=== PATIENT | male | born 1975 | race Caucasian/White ===

== ENCOUNTER 2017-02-18 11:17 | Emergency (ER) | payer SELFPAY ==
[~2017-02-18] VITALS: Ht 177.8 cm; Wt 90.7 kg
[~2017-02-18 11:17] MED LIST: METH4TAB PO; SULF1TAB35 PO
--- OUTSIDE RECORDS SUMMARY | 2017-02-18 11:22 | XMS REPORT | Continuity of Care Document ---
Author Author [facility] Organization [facility] Address Unknown Phone Unavailable Allergies Medications Problems Procedures Results Encounters ACCT No. Visit Date/Time Discharge Status Pt. Type Provider Facility Loc./Unit Complaint [id number] 01/29/2013 10:06:00 2012 23:59:59 CLS Outpatient
[2017-02-18] MEDS ORDERED: NS IV 1000 ML 1,000 ML IV ONE (11:30)
--- NOTE | 2017-02-18 11:36 | ED Lower Extremity ---
General Stated Complaint: AMS History of Present Illness Time seen by provider: 11:20 Initial Comments Initial evaluation, patient reports that he has been running outside barefoot this morning. He is complaining of left lower extremity pain, is brought here via EMS. He was recently incarcerated for 100 days and was released 3 days ago. He reports he does have a history of a DVT in his left lower extremity several years ago. He reports to be taking Ativan and Vyvanse. Patient has poor concentration and flight of ideas. He denies any alcohol or drug use. Reports he has been clean 10 years. History hepatitis C. Onset: this morning Pain/Injury Location: left thigh, left foot, left ankle Method of Injury: unknown Modifying Factors: Improves With Rest Allergies and Home Medications Allergies Coded Allergies: No Known Drug Allergies (Verified Allergy, Unknown, 01/09/06) Home Medications Cephalexin 500 Mg Capsule, 500 MG PO Q6H, #28 Ref 0 Prescribed by: CHAY ALEJANDRO on 02/18/17 1403 Methylprednisolone 4 Mg/Dose-Pack Tab.ds.pk, 0 PO UD, #1 Ref 0 FOR PAIN AND SWELLING Prescribed by: SHOSHANA PANG on 04/12/09 1705 Sulfamethoxazole/Trimethoprim 1 Each Tablet, 1 EACH PO BID, #20 Ref 0 FOR INFECTION Prescribed by: SHOSHANA PANG on 04/12/09 1705 Constitutional: see HPI, malaise, weakness EENTM: no symptoms reported, see HPI Respiratory: see HPI, cough Cardiovascular: no symptoms reported, see HPI Gastrointestinal: no symptoms reported, see HPI Genitourinary: no symptoms reported, see HPI Musculoskeletal: see HPI, joint pain (left ankle), muscle pain (left lower extremity) Skin: see HPI, lesions (abrasions left lower extremity and bilateral feet) Psychiatric/Neurological: See HPI, Anxiety All Other Systems Reviewed Negative Unless Noted: Yes Past Egpzexu-Klcggm-Otamrd Hx Gastrointestinal Gastrointestinal Disorders: Hepatitis (hepatitis C ) Physical Exam Vital Signs Vital Sign - Last 12Hours 02/18/17 11:34 Temp 100.7 Pulse 118 Resp 25 B/P (MAP) 143/96 Pulse Ox 97 O2 Delivery Room Air Capillary Refill : General Appearance: WD/WN, no apparent distress HEENT: PERRL/EOMI, normal ENT inspection, TMs normal, pharynx normal Cardiovascular: normal peripheral pulses, regular rate, rhythm, no edema, no murmur, tachycardia Respiratory: chest non-tender, lungs clear, normal breath sounds Gastrointestinal: normal bowel sounds, non tender, soft Back: normal inspection, no CVA tenderness, no vertebral tenderness Hips: bilateral hip non-tender, bilateral hip normal inspection, bilateral hip normal range of motion Ankles: bilateral ankle normal range of motion, left ankle pain, left ankle swelling, left ankle other (mild erythema) Feet: bilateral foot non-tender, bilateral foot other (multiple superficial abrasion) Neurologic/Tendon: normal sensation, normal motor functions, normal tendon functions, responds to pain Neurologic/Psychiatric: no motor/sensory deficits, alert, normal mood/affect, oriented x 3 Skin: warm/dry Lymphatic: no adenopathy Progress/Results/Core Measures Results/Orders Lab Results Laboratory Tests Test 02/18/17 11:30 02/18/17 13:07 Range/Units White Blood Count 10.8 4.3-11.0 10^3/uL Red Blood Count 4.88 4.35-5.85 10^6/uL Hemoglobin 14.1 13.3-17.7 G/DL Hematocrit 43 40-54 % Mean Corpuscular Volume 89 80-99 FL Mean Corpuscular Hemoglobin 29 25-34 PG Mean Corpuscular Hemoglobin Concent 33 32-36 G/DL Red Cell Distribution Width 13.9 10.0-14.5 % Platelet Count 195 130-400 10^3/uL Mean Platelet Volume 10.4 7.4-10.4 FL Neutrophils (%) (Auto) 77 H 42-75 % Lymphocytes (%) (Auto) 11 L 12-44 % Monocytes (%) (Auto) 11 0-12 % Eosinophils (%) (Auto) 0 0-10 % Basophils (%) (Auto) 1 0-10 % Neutrophils # (Auto) 8.3 H 1.8-7.8 X 10^3 Lymphocytes # (Auto) 1.2 1.0-4.0 X 10^3 Monocytes # (Auto) 1.2 H 0.0-1.0 X 10^3 Eosinophils # (Auto) 0.0 0.0-0.3 10^3/uL Basophils # (Auto) 0.1 0.0-0.1 10^3/uL Sodium Level 148 H 135-145 MMOL/L Potassium Level 3.2 L 3.6-5.0 MMOL/L Chloride Level 115 H 98-107 MMOL/L Carbon Dioxide Level 20 L 21-32 MMOL/L Anion Gap 13 5-14 MMOL/L Blood Urea Nitrogen 25 H 7-18 MG/DL Creatinine 1.10 0.60-1.30 MG/DL Estimat Glomerular Filtration Rate > 60 BUN/Creatinine Ratio 23 Glucose Level 83 70-105 MG/DL Calcium Level 9.3 8.5-10.1 MG/DL Total Bilirubin 2.0 H 0.1-1.0 MG/DL Aspartate Amino Transf (AST/SGOT) 56 H 5-34 U/L Alanine Aminotransferase (ALT/SGPT) 43 0-55 U/L Alkaline Phosphatase 68 40-136 U/L Total Protein 7.0 6.4-8.2 GM/DL Albumin 4.0 3.2-4.5 GM/DL Acetaminophen Level < 10 L 10-30 UG/ML Serum Alcohol < 10 <10 MG/DL Urine Color YELLOW Urine Clarity SLIGHTLY CLOUDY Urine pH 5 5-9 Urine Specific [place] 1.025 H 1.016-1.022 Urine Protein 2+ H NEGATIVE Urine Glucose (UA) NEGATIVE NEGATIVE Urine Ketones 3+ H NEGATIVE Urine Nitrite NEGATIVE NEGATIVE Urine Bilirubin NEGATIVE NEGATIVE Urine Urobilinogen NORMAL NORMAL MG/DL Urine Leukocyte Esterase NEGATIVE NEGATIVE Urine RBC (Auto) 1+ H NEGATIVE Urine RBC 0-2 /HPF Urine WBC NONE /HPF Urine Crystals NONE /LPF Urine Bacteria NEGATIVE /HPF Urine Casts NONE /LPF Urine Mucus SMALL H /LPF Urine Other FEW SPERM H /HPF Urine Culture Indicated NO Urine Opiates Screen NEGATIVE NEGATIVE Urine Oxycodone Screen NEGATIVE NEGATIVE Urine Methadone Screen NEGATIVE NEGATIVE Urine Propoxyphene Screen NEGATIVE NEGATIVE Urine Barbiturates Screen NEGATIVE NEGATIVE Ur Tricyclic Antidepressants Screen NEGATIVE NEGATIVE Urine Phencyclidine Screen NEGATIVE NEGATIVE Urine Amphetamines Screen POSITIVE H NEGATIVE Urine Methamphetamines Screen POSITIVE H NEGATIVE Urine Benzodiazepines Screen POSITIVE H NEGATIVE Urine Cocaine Screen NEGATIVE NEGATIVE Urine Cannabinoids Screen NEGATIVE NEGATIVE My Orders Orders - CHAY ALEJANDRO BIOLOGY TUTOR Acetaminophen (02/18/17 11:30) Alcohol (02/18/17 11:30) Cbc With Automated Diff (02/18/17 11:30) Comprehensive Metabolic Panel (02/18/17 11:30) Drug Screen Stat (Urine) (02/18/17 11:30) Ua Culture If Indicated (02/18/17 11:30) Saline Lock/Iv-Start (02/18/17 11:30) Ns Iv 1000 Ml (Sodium Chloride 0.9%) (02/18/17 11:30) Ankle, Left, 3 Views (02/18/17 11:30) Us Venous Lower Ext Lt (02/18/17 11:30) Cephalexin Capsule (Keflex Capsule) (02/18/17 13:15) Medications Given in ED Current Medications Medications Dose Ordered Sig/Ana Route Start Time Stop Time Status Last Admin Dose Admin Sodium Chloride 1,000 ml @ 0 mls/hr Q0M ONCE IV 02/18/17 11:30 02/18/17 11:32 DC 02/18/17 12:00 0 MLS/HR Vital Signs/I&O Vital Sign - Last 12Hours 02/18/17 11:34 Temp 100.7 Pulse 118 Resp 25 B/P (MAP) 143/96 Pulse Ox 97 O2 Delivery Room Air Progress Note : Time: 11:20 Progress Note Initial evaluation completed, IV normal saline 1 L, CBC CMP UA UDS. Continue to monitor EKG. Tachycardia 120 to 140s. Denies illicit drug use. 1145 ultrasound left lower extremity negative, x-rays of the left ankle show no fracture, dislocation, or acute bony abnormalities. Results reviewed with patient. 1245 patient able to stand next to the bedside and give urine sample. Heart rate 100-105. Follow alert and oriented, the patient continues to have flight of ideas through conversation. 1330 UA negative, urine drug screen positive for amphetamines, methamphetamines and benzos. Discussed these results with the patient he denies methamphetamine use. Discussed findings of cellulitis in the left lower extremity, recommended antibiotic treatment. Discussed this with patient. He agrees with this discharge plan and reports he is ready to be released to return home. Diagnostic Imaging Diagonstic Imaging: Ultrasound Plain Films/CT/US/NM/MRI: leg Comments NAME: VIRGILIOCHAIM Vanessa [facility] REC#: [id number] PT STATUS: REG ER : 1975 PHYSICIAN: CHAY ALEJANDRO ADMIT DATE: 02/18/17/ER Signed Date of Exam: 02/18/17 US VENOUS LOWER EXT LT INDICATION: Altered mental status. Pain. TECHNIQUE: Grayscale with color-flow and Doppler waveform evaluation of the left lower extremity deep venous system. CORRELATION STUDY: None FINDINGS: Color and grayscale sonographic images demonstrate no intraluminal defect within the visualized portion of the common femoral, superficial femoral and/or popliteal veins to suggest thrombus formation. These vessels demonstrate normal response to compression and augmentation. No soft tissue fluid collection. IMPRESSION: 1. Negative for deep venous thrombosis of the left leg. Dictated by: Dictated on workstation # [id number] Dict: 02/18/17 120 Trans: 02/18/171205 Interpreted by: DRAKE WINTERS DO Electronically signed by: DRAKE WINTERS DO 02/18/171205 Reviewed: Reviewed/Discussed (with radiology technologist.) Diagonstic Imaging: Xray Plain Films/CT/US/NM/MRI: ankle Departure Impression Impression: Primary Impression: Methamphetamine abuse Additional Impression: Cellulitis of left lower extremity Disposition: 01 HOME, SELF-CARE Condition: Improved Departure-Patient Inst. Decision time for Depature: 13:25 Referrals: NO,LOCAL PHYSICIAN (PCP/Family) Primary Care Physician Patient Instructions: Cellulitis (Skin Infection), Adult (DC), Methamphetamine Add. Discharge Instructions: Increase water and Gatorade intake. Take antibiotics as prescribed. Elevate lower extremities 20 minutes every 2 hours. Wear shoes when outside. Return to emergency department for increased pain, swelling, or redness in lower extremities; temperature greater than 100. Do not use methamphetamines while taking Ativan and Vyvanse. All discharge instructions reviewed with patient, he verbalized understanding and compliance. Scripts Cephalexin (Keflex) 500 Mg Capsule 500 MG PO Q6H, #28 CAP 0 Refills Prov: CHAY ALEJANDRO 02/18/17 CHAY ALEJANDRO Feb 18, 2017 11:36
[2017-02-18 11:39] LABS: BASOPHILS # (AUTO) 0.1 10^3/uL (0.0-0.1); BASOPHILS % (AUTO) 1 % (0-10); EOSINOPHILS % (AUTO) 0 % (0-10); LYMPHOCYTES # (AUTO) 1.2 X 10^3 (1.0-4.0); LYMPHOCYTES % (AUTO) 11 % (12-44); MEAN CORPUSCULAR HEMOGLOBIN 29 PG (25-34); MEAN CORPUSCULAR HGB CONC 33 G/DL (32-36); MEAN CORPUSCULAR VOLUME 89 FL (80-99); MEAN PLATELET VOLUME 10.4 FL (7.4-10.4); MONOCYTES # (AUTO) 1.2 X 10^3 (0.0-1.0); MONOCYTES % (AUTO) 11 % (0-12); NEUTROPHILS # (AUTO) 8.3 X 10^3 (1.8-7.8); NEUTROPHILS % (AUTO) 77 % (42-75); PLATELET COUNT 195 10^3/uL (130-400); RED BLOOD COUNT 4.88 10^6/uL (4.35-5.85); RED CELL DISTRIBUTION WIDTH 13.9 % (10.0-14.5); WHITE BLOOD COUNT 10.8 10^3/uL (4.3-11.0)
[2017-02-18 11:56] LABS: ALANINE AMINOTRANSFERASE 43 U/L (0-55); ALCOHOL < 10 MG/DL (<10); ANION GAP 13 MMOL/L (5-14); ASPARTATE AMINO TRANSFERASE 56 U/L (5-34); BLOOD UREA NITROGEN 25 MG/DL (7-18); BUN/CREATININE RATIO 23; CALCIUM 9.3 MG/DL (8.5-10.1); CARBON DIOXIDE 20 MMOL/L (21-32); CHLORIDE 115 MMOL/L (98-107); GFR ESTIMATED > 60; GLUCOSE 83 MG/DL (70-105); POTASSIUM 3.2 MMOL/L (3.6-5.0); SODIUM 148 MMOL/L (135-145)
[2017-02-18 11:57] LABS: ACETAMINOPHEN < 10 UG/ML (10-30)
--- NOTE | 2017-02-18 12:09 | Diagnostic Imaging Report ---
INDICATION: Altered mental status. Pain. TECHNIQUE: Grayscale with color-flow and Doppler waveform evaluation of the left lower extremity deep venous system. CORRELATION STUDY: None FINDINGS: Color and grayscale sonographic images demonstrate no intraluminal defect within the visualized portion of the common femoral, superficial femoral and/or popliteal veins to suggest thrombus formation. These vessels demonstrate normal response to compression and augmentation. No soft tissue fluid collection. IMPRESSION: 1. Negative for deep venous thrombosis of the left leg. Dictated by: Dictated on workstation # [id number]
--- NOTE | 2017-02-18 12:19 | Diagnostic Imaging Report ---
INDICATION: Left ankle pain and swelling. COMPARISON: None. FINDINGS: 3 views left ankle demonstrate degenerative changes involving the tarsal articulations. There is no fracture or dislocation. There is narrowing of the ankle mortise. IMPRESSION: 1. No acute fracture or dislocation. 2. Degenerative joint disease. 3. 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 Dictated by: Dictated on workstation # [id number]
[2017-02-18 13:14] LABS: BILIRUBIN,URINE NEGATIVE (NEGATIVE); KETONES,URINE 3+ (NEGATIVE); LEUKOCYTE ESTERASE ,URINE NEGATIVE (NEGATIVE); NITRITE,URINE NEGATIVE (NEGATIVE); PH,URINE 5 (5-9); PROTEIN,URINE 2+ (NEGATIVE); UROBILINOGEN,URINE NORMAL (NORMAL)
[2017-02-18] MEDS ORDERED: CEPHALEXIN 250 MG (KEFLEX) CAP PO ONE (13:15)
[2017-02-18] MEDS ORDERED: CEPH-507 PO (14:03)
[2017-02-18 14:15] VITALS: BP 143/96
== END 2017-02-18 14:15 | disposition home or self-care (01) ==
LOC: EDUNIT# 11:17 → ER 11:18
DX: L03.116 Cellulitis of left lower limb (principal); F15.10 Other stimulant abuse, uncomplicated; B19.20 Unspecified viral hepatitis C without hepatic coma; Z86.718 Personal history of other venous thrombosis and embolism
CPT/HCPCS: 36415; 73610; 80053; 80306; 80320; 80329; 81000; 85025

== ENCOUNTER 2018-08-05 16:53 | Emergency (ER) | payer SELFPAY ==
[~2018-08-05] VITALS: Ht 177.8 cm; Wt 97.5 kg
[~2018-08-05 16:53] MED LIST changes: +CEPH-507 PO
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
[2018-08-05 18:35] VITALS: BP 161/97
--- NOTE | 2018-08-05 18:35 | NUR ---
Pt. is to meet Dr. Menendez at his office after being dismissed from the ER.
== END 2018-08-05 18:35 | disposition home or self-care (01) ==
LOC: EDUNIT# 16:53 → ER 16:54
DX: H53.8 Other visual disturbances (principal); B19.20 Unspecified viral hepatitis C without hepatic coma; Z79.52 Long term (current) use of systemic steroids
CPT/HCPCS: 99282

== ENCOUNTER 2021-10-05 20:46 | Inpatient (IN) | payer SELFPAY ==
[~2021-10-05] VITALS: Ht 177.8 cm; Wt 103.0 kg
[2021-10-05 20:50] VITALS: BP 106/78
[2021-10-05] MEDS ORDERED: ASPIRIN 81 MG CHEW (CHILDREN'S ASA) PO ONE (21:00)
--- NOTE | 2021-10-05 21:34 | Diagnostic Imaging Report ---
CHEST 1 VIEW, AP/PA ONLY Indication: Chest pain. Comparison: None available. Findings: Left basilar patchy consolidation. No pleural effusion or pneumothorax. Heart is mildly enlarged. Impression: 1. Left basilar patchy consolidations are most likely due to pneumonia. 2. Advise followup PA and lateral chest radiographs in 4 weeks after appropriate medical management to ensure resolution. Dictated by: Dictated on workstation # [id number]
[2021-10-05 21:49] LABS: BASOPHILS # (AUTO) 0.1 10^3/uL (0.0-0.1); BASOPHILS % (AUTO) 0 % (0-10); EOSINOPHILS # (AUTO) 0.1 10^3/uL (0.0-0.3); EOSINOPHILS % (AUTO) 1 % (0-10); HEMATOCRIT 42 % (40-54); HEMOGLOBIN 13.6 g/dL (13.3-17.7); LYMPHOCYTES # (AUTO) 1.1 10^3/uL (1.0-4.0); LYMPHOCYTES % (AUTO) 6 % (12-44); MEAN CORPUSCULAR HEMOGLOBIN 29 pg (25-34); MEAN CORPUSCULAR HGB CONC 32 g/dL (32-36); MEAN CORPUSCULAR VOLUME 91 fL (80-99); MEAN PLATELET VOLUME 11.5 fL (9.0-12.2); MONOCYTES # (AUTO) 1.2 10^3/uL (0.0-1.0); MONOCYTES % (AUTO) 7 % (0-12); NEUTROPHILS # (AUTO) 14.8 10^3/uL (1.8-7.8); NEUTROPHILS % (AUTO) 85 % (42-75); PLATELET COUNT 173 10^3/uL (130-400); WHITE BLOOD COUNT 17.5 10^3/uL (4.3-11.0)
[2021-10-05 22:08] LABS: ALBUMIN 3.6 GM/DL (3.2-4.5); BILIRUBIN,TOTAL 0.6 MG/DL (0.1-1.0); CALCIUM 8.4 MG/DL (8.5-10.1); CREATININE SERUM 1.44 MG/DL (0.60-1.30); MAGNESIUM 2.4 MG/DL (1.6-2.4); POTASSIUM 3.3 MMOL/L (3.6-5.0); TOTAL PROTEIN 6.1 GM/DL (6.4-8.2)
[2021-10-05] MEDS ORDERED: PIPERACILLIN SODIUM/TAZOBACTAM 4.5 GM in NS (IVPB) 100 ML IV ONE (22:15)
[2021-10-05 22:18] LABS: PROTHROMBIN TIME PATIENT 13.7 SEC (12.2-14.7)
[2021-10-05 22:29] LABS: BAND NEUTROPHILS 3 %; LYMPHOCYTES % (MANUAL) 7 %; MONOCYTES % (MANUAL) 4 %; NEUTROPHILS % (MANUAL) 86 %; RBC MORPH NORMAL
[2021-10-05] MEDS ORDERED: LACTATED RINGERS 1,000 ML IV ONE (22:45)
[2021-10-05] MEDS ORDERED: HOLD METFORMIN - RECEIVED CONTRAST 20 ML VIAL IV SCH (23:30)
[2021-10-05] MEDS ORDERED: CATHETER FLUSH 10 ML SYR IV PRN (23:30)
[2021-10-05] MEDS ORDERED: IOHEXOL 350 MG/ML 100 ML (OMNIPAQUE 350) VIAL IV ONE (23:30)
[2021-10-05] MEDS ORDERED: NS 100 ML (IVPB) BAG IV ONE (23:30)
--- NOTE | 2021-10-06 00:48 | ED General ---
General Chief Complaint: Overdose Stated Complaint: OVERDOSE Nursing Triage Note: Pt arrives via EMS for c/o overdose. Pt found unresponsive by his . Per first responders, pt was pulseless et no respirations; CPR was initiated. Pulse returned after five minutes of CPR, pt then had snoring respirations. On EMS arrival, pt was given 1mg Narcan intranasal et assisted respirations via BVM. Pt then became responsive but was drowsy. During transport pt was A&Ox4. On arrival to ED pt is A&Ox4, oxygen via NC at 6LPM. Pt admits to taking "Xanax one pill." Pt reports chest pain. Source of Information: Patient Exam Limitations: No Limitations (NELSON BORGES MD) History of Present Illness Date Seen by Provider: Oct 05, 2021 Time Seen by Provider: 20:47 Initial Comments This 46-year-old gentleman presents to the emergency room via EMS after being found on the floor by his . EMS reported that first responders found him to be pulseless and not breathing. They initiated CPR. This was ongoing for reportedly about 5 minutes prior to EMS arrival. When EMS arrived they found the patient with agonal breathing and pulse present. They immediately administered nasal Narcan and patient became alert. Oxygen saturations were resuscitated with nasal cannula. Patient is alert and able to answer questions on arrival. He is requiring 4 to 6 L by nasal cannula. Patient admitted to taking something he thought looked like Xanax earlier in the day. He reportedly had some sort of disagreement with his significant other prior to that. Patient does not state whether he intended self-harm by taking this pill. He denies feeling ill in any way prior to this episode. He complains of chest and abdominal discomfort. He denies any head or neck pain. There was no suspicion for trauma other than the CPR. Patient is noted to have an asymmetric smile which he states is normal. He is otherwise neurologically intact on gross examination (NELSON BORGES MD) Allergies and Home Medications Allergies Coded Allergies: Sulfa (Sulfonamide Antibiotics) (Verified Allergy, Unknown, 10/06/21) Patient Home Medication List Home Medication List Reviewed: Yes (NELSON BORGES MD) Lisinopril (Lisinopril) 40 Mg Tablet, 40 MG PO DAILY, (Reported) Entered as Reported by: MCAK GALINDO on 10/06/21 0956 Last Action: Held Discontinued Medications Cephalexin (Keflex) 500 Mg Capsule, 500 MG PO Q6H Discontinued Reason: No Longer Taking Prescribed by: CHAY ALEJANDRO on 02/18/17 1403 Last Action: Discontinued Methylprednisolone (Medrol Dose Pack) 4 Mg/Dose-Pack Tab.ds.pk, 0 PO UD Discontinued Reason: No Longer Taking Prescribed by: SHOSHANA PANG on 04/12/091704 Last Action: Discontinued Sulfamethoxazole/Trimethoprim (Bactrim DS) 1 Each Tablet, 1 EACH PO BID Discontinued Reason: No Longer Taking Prescribed by: SHOSHANA PANG on 04/12/091704 Last Action: Discontinued Review of Systems Review of Systems Constitutional: see HPI EENTM: no symptoms reported Respiratory: see HPI Cardiovascular: see HPI Gastrointestinal: see HPI Genitourinary: no symptoms reported Musculoskeletal: see HPI Skin: no symptoms reported Psychiatric/Neurological: See HPI Hematologic/Lymphatic: No Symptoms Reported Immunological/Allergic: no symptoms reported (NELSON BORGES MD) Past Uskcivc-Brdxft-Yepoyk Hx Patient Social History Tobacco Use?: No Use of E-Cig and/or Vaping dev: No Substance use?: Yes 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) Alcohol Use?: No Pt feels they are or have been: No (NELSON BORGES MD) Immunizations Up To Date Influenza Vaccine Up-to-Date: No; Not Current (NELSON BORGES MD) Seasonal Allergies Seasonal Allergies: No (NELSON BORGES MD) Past Medical History Surgeries: Yes Orthopedic Respiratory: No Cardiac: No Neurological: No Genitourinary: No Gastrointestinal: Yes Hepatitis (Hepatitis C) Endocrine: No HEENT: No Cancer: No Did You Recieve Any Treatments: No Psychosocial: Yes ADD/ADHD Blood Disorders: Yes (HEP C) (NELSON BORGES MD) Physical Exam-Suspected Sepsis Physical Exam Vital Signs Vital Signs - First Documented 10/05/21 10/06/21 20:50 01:49 Temp 36.4 Pulse 78 Resp 19 B/P (MAP) 106/78 (87) Pulse Ox 92 O2 Delivery Nasal Cannula O2 Flow Rate 6.00 FiO2 98 (ELMER REYES) Vital Signs Capillary Refill : Less Than 3 Seconds (NELSON BORGES MD) Blood Pressure Mean: 87 Height, Weight, BMI Height: 5'10.00" Weight: 215lbs. oz. 97.420678hy; 32.00 BMI Method:Stated General Appearance: No Apparent Distress, WD/WN HEENT: PERRL/EOMI, Normal ENT Inspection, Pharynx Normal Neck: Normal Inspection, Non Tender Respiratory: Lungs Clear, Normal Breath Sounds, No Accessory Muscle Use Cardiovascular: Regular Rate, Rhythm, No Edema, No Murmur Gastrointestinal: Normal Bowel Sounds, Soft; No Distended; Tenderness (Generalized) Extremity: Normal Inspection, No Calf Tenderness, Other (Nontender bruising over the right anterior ankle and knee) Neurologic/Psychiatric: Alert, Oriented x3, No Motor/Sensory Deficits, Normal Mood/Affect, 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 Norm as Tested, Other (Generalized weakness with no focal deficits) Skin: normal color, warm/dry, ecchymosis (NELSON BORGES MD) Focused Exam Lactate Level 10/05/21 22:15: Lactic Acid Level 1.13 (ELMER REYES) Progress/Results/Core Measures Suspected Sepsis SIRS Temperature: Pulse: 78 Respiratory Rate: 19 Laboratory Tests 10/05/21 21:40: White Blood Count 17.5H 10/06/21 04:30: White Blood Count 16.4H Blood Pressure 106 /78 Mean: 87 10/05/21 22:15: Lactic Acid Level 1.13 Laboratory Tests 10/05/21 21:40: Creatinine 1.44H, INR Comment 1.0, Platelet Count 173, Total Bilirubin 0.6 10/06/21 04:30: Creatinine 1.00, Platelet Count 168, Total Bilirubin 1.1H (NELSON BORGES MD) Results/Orders Lab Results Laboratory Tests Test 10/05/21 21:03 10/05/21 21:40 10/05/21 22:15 10/06/21 01:30 Range/Units Influenza Type A (RT-PCR) Not Detected Not Detecte Influenza Type B (RT-PCR) Not Detected Not Detecte SARS-CoV-2 RNA (RT-PCR) Not Detected Not Detecte White Blood Count 17.5 H 4.3-11.0 10^3/uL Red Blood Count 4.65 4.30-5.52 10^6/uL Hemoglobin 13.6 13.3-17.7 g/dL Hematocrit 42 40-54 % Mean Corpuscular Volume 91 80-99 fL Mean Corpuscular Hemoglobin 29 25-34 pg Mean Corpuscular Hemoglobin Concent 32 32-36 g/dL Red Cell Distribution Width 13.2 10.0-14.5 % Platelet Count 173 130-400 10^3/uL Mean Platelet Volume 11.5 9.0-12.2 fL Immature Granulocyte % (Auto) 1 % Neutrophils (%) (Auto) 85 H 42-75 % Lymphocytes (%) (Auto) 6 L 12-44 % Monocytes (%) (Auto) 7 0-12 % Eosinophils (%) (Auto) 1 0-10 % Basophils (%) (Auto) 0 0-10 % Neutrophils # (Auto) 14.8 H 1.8-7.8 10^3/uL Lymphocytes # (Auto) 1.1 1.0-4.0 10^3/uL Monocytes # (Auto) 1.2 H 0.0-1.0 10^3/uL Eosinophils # (Auto) 0.1 0.0-0.3 10^3/uL Basophils # (Auto) 0.1 0.0-0.1 10^3/uL Immature Granulocyte # (Auto) 0.2 H 0.0-0.1 10^3/uL Neutrophils % (Manual) 86 % Lymphocytes % (Manual) 7 % Monocytes % (Manual) 4 % Band Neutrophils 3 % Blood Morphology Comment NORMAL Prothrombin Time 13.7 12.2-14.7 SEC INR Comment 1.0 0.8-1.4 Activated Partial Thromboplast Time 24 24-35 SEC D-Dimer 0.62 H 0.00-0.49 UG/ML Sodium Level 145 135-145 MMOL/L Potassium Level 3.3 L 3.6-5.0 MMOL/L Chloride Level 109 H 98-107 MMOL/L Carbon Dioxide Level 23 21-32 MMOL/L Anion Gap 13 5-14 MMOL/L Blood Urea Nitrogen 27 H 7-18 MG/DL Creatinine 1.44 H 0.60-1.30 MG/DL Estimat Glomerular Filtration Rate 61 BUN/Creatinine Ratio 19 Glucose Level 109 H 70-105 MG/DL Calcium Level 8.4 L 8.5-10.1 MG/DL Corrected Calcium 8.7 8.5-10.1 MG/DL Magnesium Level 2.4 1.6-2.4 MG/DL Total Bilirubin 0.6 0.1-1.0 MG/DL Aspartate Amino Transf (AST/SGOT) 40 H 5-34 U/L Alanine Aminotransferase (ALT/SGPT) 63 H 0-55 U/L Alkaline Phosphatase 88 40-136 U/L Myoglobin 255.2 H 10.0-92.0 NG/ML Troponin I < 0.028 <0.028 NG/ML C-Reactive Protein High Sensitivity 0.19 0.00-0.50 MG/DL B-Type Natriuretic Peptide 34.5 <100.0 PG/ML Total Protein 6.1 L 6.4-8.2 GM/DL Albumin 3.6 3.2-4.5 GM/DL Procalcitonin 0.03 <0.10 NG/ML Serum Alcohol < 10 <10 MG/DL Lactic Acid Level 1.13 0.50-2.00 MMOL/L Urine Color YELLOW Urine Clarity CLEAR Urine pH 6.0 5-9 Urine Specific [place] 1.020 1.016-1.022 Urine Protein TRACE H NEGATIVE Urine Glucose (UA) NEGATIVE NEGATIVE Urine Ketones NEGATIVE NEGATIVE Urine Nitrite NEGATIVE NEGATIVE Urine Bilirubin NEGATIVE NEGATIVE Urine Urobilinogen 0.2 < = 1.0 MG/DL Urine Leukocyte Esterase NEGATIVE NEGATIVE Urine RBC (Auto) NEGATIVE NEGATIVE Urine RBC NONE /HPF Urine WBC NONE /HPF Urine Crystals NONE /LPF Urine Bacteria NEGATIVE /HPF Urine Casts PRESENT /LPF Urine Hyaline Casts 0-2 H /LPF Urine Mucus NEGATIVE /LPF Urine Culture Indicated CULTURE PENDING Urine Opiates Screen NEGATIVE NEGATIVE Urine Oxycodone Screen NEGATIVE NEGATIVE Urine Methadone Screen NEGATIVE NEGATIVE Urine Propoxyphene Screen NEGATIVE NEGATIVE Urine Barbiturates Screen NEGATIVE NEGATIVE Ur Tricyclic Antidepressants Screen NEGATIVE NEGATIVE Urine Phencyclidine Screen NEGATIVE NEGATIVE Urine Amphetamines Screen POSITIVE H NEGATIVE Urine Methamphetamines Screen POSITIVE H NEGATIVE Urine Benzodiazepines Screen NEGATIVE NEGATIVE Urine Cocaine Screen NEGATIVE NEGATIVE Urine Cannabinoids Screen NEGATIVE NEGATIVE Test 10/06/21 04:30 10/06/21 04:45 Range/Units White Blood Count 16.4 H 4.3-11.0 10^3/uL Red Blood Count 4.71 4.30-5.52 10^6/uL Hemoglobin 13.8 13.3-17.7 g/dL Hematocrit 42 40-54 % Mean Corpuscular Volume 90 80-99 fL Mean Corpuscular Hemoglobin 29 25-34 pg Mean Corpuscular Hemoglobin Concent 33 32-36 g/dL Red Cell Distribution Width 13.1 10.0-14.5 % Platelet Count 168 130-400 10^3/uL Mean Platelet Volume 11.9 9.0-12.2 fL Immature Granulocyte % (Auto) 1 % Neutrophils (%) (Auto) 89 H 42-75 % Lymphocytes (%) (Auto) 4 L 12-44 % Monocytes (%) (Auto) 6 0-12 % Eosinophils (%) (Auto) 0 0-10 % Basophils (%) (Auto) 0 0-10 % Neutrophils # (Auto) 14.6 H 1.8-7.8 10^3/uL Lymphocytes # (Auto) 0.7 L 1.0-4.0 10^3/uL Monocytes # (Auto) 0.9 0.0-1.0 10^3/uL Eosinophils # (Auto) 0.0 0.0-0.3 10^3/uL Basophils # (Auto) 0.1 0.0-0.1 10^3/uL Immature Granulocyte # (Auto) 0.1 0.0-0.1 10^3/uL Sodium Level 141 135-145 MMOL/L Potassium Level 3.4 L 3.6-5.0 MMOL/L Chloride Level 110 H 98-107 MMOL/L Carbon Dioxide Level 19 L 21-32 MMOL/L Anion Gap 12 5-14 MMOL/L Blood Urea Nitrogen 24 H 7-18 MG/DL Creatinine 1.00 0.60-1.30 MG/DL Estimat Glomerular Filtration Rate 95 BUN/Creatinine Ratio 24 Glucose Level 104 70-105 MG/DL Calcium Level 8.3 L 8.5-10.1 MG/DL Corrected Calcium 8.7 8.5-10.1 MG/DL Phosphorus Level 4.4 2.3-4.7 MG/DL Magnesium Level 2.1 1.6-2.4 MG/DL Total Bilirubin 1.1 H 0.1-1.0 MG/DL Aspartate Amino Transf (AST/SGOT) 31 5-34 U/L Alanine Aminotransferase (ALT/SGPT) 59 H 0-55 U/L Alkaline Phosphatase 74 40-136 U/L Total Creatine Kinase 235 H 30-200 U/L Troponin I < 0.028 <0.028 NG/ML Total Protein 6.0 L 6.4-8.2 GM/DL Albumin 3.5 3.2-4.5 GM/DL Triglycerides Level 54 <150 MG/DL Cholesterol Level 155 < 200 MG/DL LDL Cholesterol Direct 121 1-129 MG/DL VLDL Cholesterol 11 5-40 MG/DL HDL Cholesterol 36 L 40-60 MG/DL Blood Gas Puncture Site RIGHT RADIAL Blood Gas Patient Temperature 37.6 Arterial Blood pH 7.36 L 7.37-7.43 Arterial Blood Partial Pressure CO2 44 35-45 MMHG Arterial Blood Partial Pressure O2 82 79-93 MMHG Arterial Blood HCO3 24 23-27 MMOL/L Arterial Blood Total CO2 25.2 21.0-31.0 MMOL/L Arterial Blood Oxygen Saturation 96 94-100 % Arterial Blood Base Excess -0.6 -2.5-2.5 MMOL/L Paul Test YES-POS Blood Gas Ventilator Setting NO Blood Gas Inspired Oxygen 2L NC (ELMER REYES) Micro Results Microbiology 10/05/21 Blood Culture - Preliminary, Resulted No growth 10/05/21 Blood Culture - Preliminary, Resulted No growth (ELMER REYES) Vital Signs/I&O 10/06/21 10/06/21 10/06/21 10/06/21 06:00 07:00 07:00 07:47 Temp 37.6 Pulse 87 82 91 Resp 23 24 B/P (MAP) 113/73 111/65 Pulse Ox 96 95 O2 Delivery Nasal Cannula Nasal Cannula O2 Flow Rate 2.00 2.00 10/06/21 10/06/21 10/06/21 10/06/21 08:00 09:00 09:15 09:30 Pulse 85 79 Resp 27 21 B/P (MAP) 108/67 111/71 Pulse Ox 94 94 96 O2 Delivery Nasal Cannula Nasal Cannula Room Air Room Air O2 Flow Rate 2.00 2.00 10/06/21 10/06/21 10/06/21 10/06/21 10:00 12:00 12:47 12:55 Temp 37.9 38.0 Pulse 80 83 Resp 29 24 B/P (MAP) 121/75 Pulse Ox 97 91 91 O2 Delivery Nasal Cannula Room Air Room Air O2 Flow Rate 2.00 10/06/21 10/06/21 13:00 15:33 Temp 37.6 Pulse 92 80 Resp 20 B/P (MAP) 129/66 Pulse Ox 90 O2 Delivery Room Air 10/06/21 00:00 Intake Total 1000 ml Balance 1000 ml (ELMRE REYES) Vital Signs/I&O Capillary Refill : Less Than 3 Seconds (NELSON BORGES MD) Blood Pressure Mean: 87 Progress Note #1: Time: 00:54 Progress Note Patient remained alert and did not require any further Narcan. He did continue to require oxygen support at 4 to 6 L by nasal cannula to keep his oxygen satu rations in the 90s. Chest x-ray and CT angiogram of the chest revealed pneumonitis/bronchiolitis. The nature of this is uncertain. I am doubtful that it is infectious as the CRP and procalcitonin are normal. He also is afebrile. This is possibly aspiration, viral illness, or contusion from CPR. Zosyn was given empirically as a bacterial pneumonia cannot be completely ruled out. Patient has not yet produced a urine specimen for toxicology. Serum alcohol was negative. Patient remains alert and oriented. Progress Note #2: Progress Note Case was reviewed with Dr. Johnson and Dr. Mcgowan. Report was given to eICU. (NELSON BORGES MD) Progress Note : Time: 17:35 Progress Note Radiology called a fragmentary order that the patient had a CT revealing a 3 cm nonmetastatic left renal mass consistent with a renal cell carcinoma. We discussed this with Dr. Mcgowan his treating provider in the hospital and she states that she is aware of the finding and will discuss this with the patient. (ELMER REYES) ECG Initial ECG Impression Date: Oct 05, 2021 Initial ECG Impression Time: 20:51 Initial ECG Rate: 67 Initial ECG Rhythm: Normal Sinus Initial ECG Intervals: QT Comment Sinus rhythm with no ST elevation or depression. QTc slightly prolonged at 507. No axis deviation. (NELSON BORGES MD) Diagnostic Imaging Diagonstic Imaging: Xray Plain Films/CT/US/NM/MRI: chest Comments NAME: CHAIM POOLE TOMMIE REC#: [id number] PT STATUS: REG ER : 1975 PHYSICIAN: NELSON BORGES MD ADMIT DATE: 10/05/21/ER Signed Date of Exam:10/05/21 CHEST 1 VIEW, AP/PA ONLY CHEST 1 VIEW, AP/PA ONLY Indication: Chest pain. Comparison: None available. Findings: Left basilar patchy consolidation. No pleural effusion or pneumothorax. Heart is mildly enlarged. Impression: 1. Left basilar patchy consolidations are most likely due to pneumonia. 2. Advise followup PA and lateral chest radiographs in 4 weeks after appropriate medical management to ensure resolution. Dictated by: Dictated on workstation # [id number] Dict: 10/05/212131 Trans: 10/05/212229 [facility] [id number] Interpreted by: ZACHARIAH CHASE MD Electronically signed by: ZACHARIAH CHASE MD 10/05/212229 (NELSON BORGES MD) Diagonstic Imaging: CT (anngio) Plain Films/CT/US/NM/MRI: chest Comments [facility] [place] NAME: CHAIM POOLE REC#: [id number] PT STATUS: ADM IN : 1975 PHYSICIAN: NELSON BORGES MD ADMIT DATE: 10/06/21/ Signed Date of Exam:10/05/21 CT EDENILSON CHEST/NOANG ABD-PELV W INDICATION: Chest pain, abdominal pain, hypoxia CTA chest, abdomen and pelvis Thin axial sections through the chest, abdomen and pelvis are obtained following intravenous contrast bolus. Multiplanar MIP images were reconstructed and reviewed. All CT scans use one or more of the following dose optimizing techniques: automated exposure control, MA and/or KvP adjustment based on patient size and exam type or iterative reconstruction. No priors CHEST: No intraluminal pulmonary arterial filling defects are identified. The thoracic aorta appeared nonacute. There is no pleural or pericardial effusion. There is herniation of peritoneal fluid and perigastric fat through the hiatus. No significant herniation of stomach. The stomach itself was distended. Lung showed a 5 lobed bilateral lower greater than upper lobe distribution of centrilobular nodules with largely tree-in-bud morphology as well as some dependent zones of atelectatic consolidation. Findings suggest bronchiolitis including infectious etiologies of a mycobacterial, fungal or bacterial. No pneumothorax. No acute chest wall pathology. No soft tissue density lung mass. No adenopathy. ABDOMEN/PELVIS: Heterogeneously enhancing partially exophytic mass off the upper pole of the left kidney is directed anteromedially and measured 3.2 x 2.6 cm in the axial plane, the appearance is suspect for renal cell carcinoma. There are additional simple benign Bosniak 2 left renal cortical cysts as well as bilateral 2 to 3 mm nonobstructing stones within lower pole calyces. The adrenals are negative, the renal veins and cava are patent. No findings of extracapsular extension of suspected neoplasm. No pathological appearing abdominal pelvic mesenteric or retroperitoneal lymph nodes. There is no suspicious lytic or sclerotic bony lesion. Stomach is distended but appeared nonfocal. There is no small or large bowel obstruction. The liver unremarkable. No bile duct dilatation. Spleen and pancreas unremarkable. The aortoiliac and mesenteric vessels patent and nonaneurysmal. There is no small or large bowel obstruction. There is noninflamed mild sigmoid diverticulosis. No diverticulitis, the appendix air-containing visualized and normal. There are degenerative changes to the bony structures. IMPRESSION: CHEST: Bilateral pneumonia favored to be a infectious bronchiolitis, mild bibasilar atelectasis, no evidence for PE or acute aortic pathology. No thoracic adenopathy or suspect lung mass. Herniation of perigastric fat into the paraesophageal lower posterior mediastinum. ABDOMEN/PELVIS: 1. Findings suspicious for renal cell carcinoma left upper pole without features suggestive of regional or distant metastasis. 2. There are superimposed benign renal cyst and nonobstructing renal calculi. Mild noninflamed sigmoid diverticulosis. No bowel, biliary or urinary tract obstruction with a normal appendix. Case discussed with the emergency room physician at time of this dictation relaying the suspicion for a renal malignancy, otherwise in agreement with preliminary report Dictated by: Dictated on workstation # [id number] Dict: 10/06/21 0750 Trans: 10/06/211656 CV [id number] Interpreted by: GUILLERMINA PRASAD Electronically signed by: GUILLERMINA PRAASD 10/06/211656 Reviewed: Reviewed by Me (ELMER REYES) Departure Communication (Admissions) Time/Spoke to Admitting Phy: 00:40 Dr. Mcgowan Time/Spoke to Consulting Phy: 00:48 Dr. Johnson (NELSON BORGES MD) Impression Primary Impression: Unresponsive Additional Impressions: Pneumonitis Overdose Qualified Codes: T50.904A - Poisoning by unspecified drugs, medicaments and biological substances, undetermined, initial encounter Hypoxia Disposition: ADMITTED INPATIENT Condition: Stable Admissions Decision to Admit Reason: Admit from ER (General) Decision to Admit/Date: Oct 06, 2021 Time/Decision to Admit Time: 00:40 (NELSON BORGES MD) Departure-Patient Inst. Referrals: NO,LOCAL PHYSICIAN (PCP/Family) Primary Care Physician NELSON BORGES MD Oct 06, 2021 00:48 ELMER REYES Oct 06, 2021 17:36
[2021-10-06] MEDS ORDERED: D5 LR IV SOLUTION 1,000 ML IV SCH (01:30)
--- NOTE | 2021-10-06 01:30 | Tele-ICU Consult ---
History of Present Illness History of Present Illness Date Seen by Provider: Oct 06, 2021 Time Seen by Provider: 02:10 Date of Admission ED Course: Pt arrives via EMS for c/o overdose. Pt found unresponsive by his . Per first responders, pt was pulseless et no respirations; CPR was initiated. Pulse returned after five minutes of CPR, pt then had snoring respirations. On EMS arrival, pt was given 1mg Narcan intranasal et assisted respirations via BVM. Pt then became responsive but was drowsy. During transport pt was A&Ox4. On arrival to ED pt is A&Ox4, oxygen via NC at 6LPM. Pt admits to taking "Xanax one pill." Pt reports chest pain. per pt: pt took xanax Sepsis work up: lactic acid and procal wnl; cxray and ct chest showed possible ll infiltrate/ empiric abx given Allergies and Home Medications Allergies Coded Allergies: No Known Drug Allergies (Verified Allergy, Unknown, 01/09/06) Home Medications Cephalexin 500 Mg Capsule, 500 MG PO Q6H Prescribed by: CHAY AELJANDRO on 02/18/17 1403 Methylprednisolone 4 Mg/Dose-Pack Tab.ds.pk, 0 PO UD FOR PAIN AND SWELLING Prescribed by: SHOSHANA PANG on 04/12/09 170 Sulfamethoxazole/Trimethoprim 1 Each Tablet, 1 EACH PO BID FOR INFECTION Prescribed by: SHOSHANA PANG on 04/12/09 1705 Past Medical/Social/Family Hx Patient Social History Marrital Status: Tobacco Use?: No Use of E-Cig and/or Vaping dev: No Substance use?: Yes Alcohol Use?: No Pt stated abuse/neglect: No Immunizations Up To Date Influenza Vaccine Up-to-Date: No; Not Current Current Status Advance Directives: No Communicates: Verbally Preferred Spoken Language: Spanish Implanted or Applied Medical D: None Past Medical History HTN, migraines occ etoh use/ last drink: 3.08.28 Review of Systems Constitutional: see HPI Cardiovascular: chest pain (post cpr) Focused Exam Lactate Level 10/05/21 22:15: Lactic Acid Level 1.13 Height, Weight, BMI Height: 5'10.00" Weight: 215lbs. oz. 97.397313qa; 32.00 BMI Method:Stated Lactic Acid Level Laboratory Tests Test 10/05/21 22:15 Lactic Acid Level 1.13 MMOL/L (0.50-2.00) Exam Exam Patient acknowledged, consented, and participated in this virtual visit which was conducted using real time audio/video Vital Signs Date Time Temp Pulse Resp B/P (MAP) Pulse Ox O2 Delivery O2 Flow Rate FiO2 10/05/21 20:50 36.4 78 19 106/78 (87) 92 Room Air 10/05/21 20:50 92 Nasal Cannula 6.00 I & O 10/06/21 07:00 Intake Total 1000 ml Balance 1000 ml Height & Weight Height: 5'10.00" Weight: 215lbs. oz. 97.401877rx; 32.00 BMI Method:Stated General Appearance: No Apparent Distress Capillary Refill: Less Than 3 Seconds Results Lab Laboratory Tests 10/05/21 21:40 Assessment/Plan Assessment/Plan Opiate overdose: -responded well to narcan -uds pending -cpk mildly elevated: iv fluids/ trend in am - abg ID possible pna/ aspiration -on zosyn/ follow clinical picture/ blood cultures pending DVT prophylaxis ETOH abuse: watch for withdrawal pt was visualized; dw bed side rn labs diagnostics were reviewed. GREER GRAHAM MD Oct 06, 2021 01:30
[2021-10-06 01:39] LABS: BILIRUBIN,URINE NEGATIVE (NEGATIVE); CLARITY,URINE CLEAR; COLOR,URINE YELLOW; GLUCOSE, URINE (UA) NEGATIVE (NEGATIVE); KETONES,URINE NEGATIVE (NEGATIVE); LEUKOCYTE ESTERASE ,URINE NEGATIVE (NEGATIVE); NITRITE,URINE NEGATIVE (NEGATIVE); PROTEIN,URINE TRACE (NEGATIVE)
[2021-10-06] MEDS ORDERED: LACTATED RINGERS 1,000 ML IV ONE (01:45)
[2021-10-06 01:48] LABS: BACTERIA,URINE NEGATIVE /HPF
[2021-10-06 01:49] LABS: HYALINE CASTS, URINE 0-2 /LPF
[2021-10-06 02:01] LABS: AMPHETAMINE SCREEN, URINE POSITIVE (NEGATIVE); BARBITURATE SCREEN URINE NEGATIVE (NEGATIVE); BENZODIAZEPINES SCREEN URINE NEGATIVE (NEGATIVE); CANNABINOID SCREEN, URINE NEGATIVE (NEGATIVE); COCAINE SCREEN URINE NEGATIVE (NEGATIVE); METHADONE STAT NEGATIVE (NEGATIVE); METHAMPHETAMINE SCREEN URINE S POSITIVE (NEGATIVE); OPIATE SCREEN URINE NEGATIVE (NEGATIVE); OXYCODONE STAT NEGATIVE (NEGATIVE); PROPOXYPHENE STAT NEGATIVE (NEGATIVE); TRICYCLIC ANTIDEPRESSANTS SCRE NEGATIVE (NEGATIVE)
[2021-10-06] MEDS ORDERED: ONDANSETRON 4 MG/2 ML (SDV) Z0FRAN IV PRN (02:15)
[2021-10-06] MEDS ORDERED: HYDROcodone/APAP 5 MG/325 MG (LORTAB) TAB PO PRN (02:15)
[2021-10-06] MEDS: LACTATED RINGERS 1,000 ML IV SCH ×2 (04:31→11:25)
[2021-10-06 04:53] LABS: BASOPHILS # (AUTO) 0.1 10^3/uL (0.0-0.1); BASOPHILS % (AUTO) 0 % (0-10); EOSINOPHILS % (AUTO) 0 % (0-10); HEMATOCRIT 42 % (40-54); HEMOGLOBIN 13.8 g/dL (13.3-17.7); LYMPHOCYTES # (AUTO) 0.7 10^3/uL (1.0-4.0); LYMPHOCYTES % (AUTO) 4 % (12-44); MEAN CORPUSCULAR HEMOGLOBIN 29 pg (25-34); MEAN CORPUSCULAR HGB CONC 33 g/dL (32-36); MEAN CORPUSCULAR VOLUME 90 fL (80-99); MEAN PLATELET VOLUME 11.9 fL (9.0-12.2); MONOCYTES # (AUTO) 0.9 10^3/uL (0.0-1.0); MONOCYTES % (AUTO) 6 % (0-12); NEUTROPHILS # (AUTO) 14.6 10^3/uL (1.8-7.8); NEUTROPHILS % (AUTO) 89 % (42-75); PLATELET COUNT 168 10^3/uL (130-400); WHITE BLOOD COUNT 16.4 10^3/uL (4.3-11.0)
[2021-10-06] MEDS: PIPERACILLIN SODIUM/TAZOBACTAM 4.5 GM in NS (IVPB) 100 ML IV SCH ×3 (04:56→20:27)
[2021-10-06 04:57] LABS: ABG BASE EXCESS -0.6 MMOL/L (-2.5-2.5); ABG OXYGEN SATURATION 96 % (94-100); ABG PCO2 44 MMHG (35-45); ABG PH 7.36 (7.37-7.43); ABG PO2 82 MMHG (79-93); ABG TCO2 25.2 MMOL/L (21.0-31.0); ALLENS TEST YES-POS; INSPIRED O2 2L NC; PATIENT TEMP 37.6; VENTILATOR NO
[2021-10-06 05:03] LABS: ALBUMIN 3.5 GM/DL (3.2-4.5)
[2021-10-06 05:04] LABS: CHLORIDE 110 MMOL/L (98-107); POTASSIUM 3.4 MMOL/L (3.6-5.0); SODIUM 141 MMOL/L (135-145)
[2021-10-06 05:05] LABS: CALCIUM 8.3 MG/DL (8.5-10.1)
[2021-10-06 05:06] LABS: GLUCOSE 104 MG/DL (70-105)
[2021-10-06 05:07] LABS: CARBON DIOXIDE 19 MMOL/L (21-32)
[2021-10-06 05:08] LABS: BILIRUBIN,TOTAL 1.1 MG/DL (0.1-1.0)
[2021-10-06 05:09] LABS: ALKALINE PHOSPHATASE 74 U/L (40-136); PHOSPHORUS 4.4 MG/DL (2.3-4.7)
[2021-10-06 05:10] LABS: GFR ESTIMATED 95
[2021-10-06 05:11] LABS: BUN/CREATININE RATIO 24
[2021-10-06 05:12] LABS: MAGNESIUM 2.1 MG/DL (1.6-2.4)
[2021-10-06 05:13] LABS: ALANINE AMINOTRANSFERASE 59 U/L (0-55); CREATINE KINASE 235 U/L (30-200)
[2021-10-06] MEDS ORDERED: MAGNESIUM 1 GM/100 ML IVPB 100 ML IV SCH (06:00)
[2021-10-06] MEDS ORDERED: POTASSIUM CL 10MEQ/50ML IVPB 50 ML IV SCH (06:00)
[2021-10-06] MEDS ORDERED: KCL 20 MEQ TAB (K-DUR) PO SCH (06:00)
[2021-10-06] MEDS ORDERED: FLU QUADRIvalent (3YOA+) 60 mcg/0.5 ml 2021-22(AFLURIA) IM ONE (06:45)
[2021-10-06] MEDS: POTASSIUM CL 10MEQ/50ML IVPB 50 ML IV SCH (06:52)
--- NOTE | 2021-10-06 08:06 | Diagnostic Imaging Report ---
INDICATION: Chest pain, abdominal pain, hypoxia CTA chest, abdomen and pelvis Thin axial sections through the chest, abdomen and pelvis are obtained following intravenous contrast bolus. Multiplanar MIP images were reconstructed and reviewed. All CT scans use one or more of the following dose optimizing techniques: automated exposure control, MA and/or KvP adjustment based on patient size and exam type or iterative reconstruction. No priors CHEST: No intraluminal pulmonary arterial filling defects are identified. The thoracic aorta appeared nonacute. There is no pleural or pericardial effusion. There is herniation of peritoneal fluid and perigastric fat through the hiatus. No significant herniation of stomach. The stomach itself was distended. Lung showed a 5 lobed bilateral lower greater than upper lobe distribution of centrilobular nodules with largely tree-in-bud morphology as well as some dependent zones of atelectatic consolidation. Findings suggest bronchiolitis including infectious etiologies of a mycobacterial, fungal or bacterial. No pneumothorax. No acute chest wall pathology. No soft tissue density lung mass. No adenopathy. ABDOMEN/PELVIS: Heterogeneously enhancing partially exophytic mass off the upper pole of the left kidney is directed anteromedially and measured 3.2 x 2.6 cm in the axial plane, the appearance is suspect for renal cell carcinoma. There are additional simple benign Bosniak 2 left renal cortical cysts as well as bilateral 2 to 3 mm nonobstructing stones within lower pole calyces. The adrenals are negative, the renal veins and cava are patent. No findings of extracapsular extension of suspected neoplasm. No pathological appearing abdominal pelvic mesenteric or retroperitoneal lymph nodes. There is no suspicious lytic or sclerotic bony lesion. Stomach is distended but appeared nonfocal. There is no small or large bowel obstruction. The liver unremarkable. No bile duct dilatation. Spleen and pancreas unremarkable. The aortoiliac and mesenteric vessels patent and nonaneurysmal. There is no small or large bowel obstruction. There is noninflamed mild sigmoid diverticulosis. No diverticulitis, the appendix air-containing visualized and normal. There are degenerative changes to the bony structures. IMPRESSION: CHEST: Bilateral pneumonia favored to be a infectious bronchiolitis, mild bibasilar atelectasis, no evidence for PE or acute aortic pathology. No thoracic adenopathy or suspect lung mass. Herniation of perigastric fat into the paraesophageal lower posterior mediastinum. ABDOMEN/PELVIS: 1. Findings suspicious for renal cell carcinoma left upper pole without features suggestive of regional or distant metastasis. 2. There are superimposed benign renal cyst and nonobstructing renal calculi. Mild noninflamed sigmoid diverticulosis. No bowel, biliary or urinary tract obstruction with a normal appendix. Case discussed with the emergency room physician at time of this dictation relaying the suspicion for a renal malignancy, otherwise in agreement with preliminary report Dictated by: Dictated on workstation # [id number]
[2021-10-06 08:43] LABS: CHOLESTEROL 155 MG/DL (< 200); HDL CHOLESTEROL 36 MG/DL (40-60); TRIGLYCERIDES 54 MG/DL (<150); VLDL CHOLESTEROL 11 MG/DL (5-40)
--- NOTE | 2021-10-06 09:00 | Consultation-Cardiology ---
HPI-Cardiology Cardiology Consultation: Date of Consultation 10/06/21 Time Seen by a Provider: 08:45 Date of Admission 10-05-21 Attending Physician Mayra Mcgowan MD Admitting Physician Cherry,Local Physician Consulting Physician KAYLYN HOPKINS HPI: Chief Complaint: Unresponsiveness Mr. Poole is a 46 yr old male who has been admitted to ICU 7 from the ED. He does not recall the events leading up to his admission. He can only recall that he took either a Valium or Xanax (not prescribed to him) and the next thing he recalls he was brought to the ED. He denies any c/o CP, SOB, palpitations, syncope or near syncope prior to this event. He reports his chest is sore this morning, worse with a deep breath. He reports he smoke cigs. He reports he has used methamphetamines, last usage a week ago, although he tested positive this admission. Review of Systems-Cardiology Review of Systems Constitutional: No chills, No fever; malaise Eyes: No vision change Ears/Nose/Throat: No epistaxis, No recent hearing loss Respiratory: As described under HPI Cardiovascular: As described under HPI Gastrointestinal: No constipation, No diarrhea, No nausea, No vomiting Genitourinary: No dysuria, No hematuria Musculoskeletal: As describe under HPI Skin: No rash on exposed areas, No ulcerations on exposed areas Psychiatric/Neurological: anxiety; No seizure, No focal weakness, No syncope Hematologic: No bleeding abnormalities DIC-Oatpfi-Pqgaln Hx Patient Social History Marrital Status: Smoking Status: Current Everyday Smoker 2nd Hand Smoke Exposure: No Have you traveled recently?: No Alcohol Use?: Yes Pt feels they are or have been: No Tobacco type used: Cigarettes Past Medical History PMH As described under Assessment. Family Medical History Family Medical History: He reports his father had CAD, with his first CA at age 40. Allergies and Home Medications Allergies Coded Allergies: Sulfa (Sulfonamide Antibiotics) (Verified Allergy, Unknown, 10/06/21) Patient Home Medication List Lisinopril (Lisinopril) 40 Mg Tablet, 40 MG PO DAILY, (Reported) Entered as Reported by: MACK GALINDO on 10/06/21 7364 Last Action: Held Discontinued Medications Cephalexin (Keflex) 500 Mg Capsule, 500 MG PO Q6H Discontinued Reason: No Longer Taking Prescribed by: CHAY ALEJANDRO on 02/18/17 1403 Last Action: Discontinued Methylprednisolone (Medrol Dose Pack) 4 Mg/Dose-Pack Tab.ds.pk, 0 PO UD Discontinued Reason: No Longer Taking Prescribed by: SHOSHANA Glenn BIRD on 04/12/091704 Last Action: Discontinued Sulfamethoxazole/Trimethoprim (Bactrim DS) 1 Each Tablet, 1 EACH PO BID Discontinued Reason: No Longer Taking Prescribed by: SHOSHANA PANG on 04/12/091704 Last Action: Discontinued Physical Exam-Cardiology Physical Exam Vital Signs/I&O 10/06/21 10/07/21 10/07/21 10/07/21 23:34 01:00 04:53 04:53 Temp 37.4 38.1 38.1 Pulse 70 80 80 Resp 20 18 B/P (MAP) 140/75 147/89 Pulse Ox 91 92 O2 Delivery Room Air Room Air 10/07/21 10/07/21 10/07/21 05:23 07:15 08:02 Temp 37.7 37.4 Pulse 86 78 Resp 18 B/P (MAP) 154/84 Pulse Ox 90 O2 Delivery Room Air 10/07/21 00:00 Intake Total 1940 ml Output Total 300 ml Balance 1640 ml Capillary Refill : Less Than 3 Seconds Constitutional: AAO x 3, well-developed, well-nourished HEENT: PERRL, hearing is well preserved; No oral hygience is good Neck: No carotid bruit; carotid pulses are 2 + bilaterally Respiratory: No accessory muscle use, No respiratory distress; chest expansion is symmetric, chest is bilaterally symmetric, rhonchi (scattered), other (coarse breath sounds) Cardiovascular: regular rate-rhythm; No JVD; S1 and S2 Gastrointestinal: No tender; soft, round, audible bowel sounds Extremities: no lower extremity edema bilateral Neurologic/Psychiatric: grossly intact (moves all extremities) Skin: No rash on exposed areas, No ulcerations on exposed areas Data Review Labs Laboratory Tests 10/07/21 05:40: White Blood Count 14.6H, Red Blood Count 4.27L, Hemoglobin 12.7L, Hematocrit 39L , Mean Corpuscular Volume 90, Mean Corpuscular Hemoglobin 30, Mean Corpuscular Hemoglobin Concent 33, Red Cell Distribution Width 13.4, Platelet Count 133, Mean Platelet Volume 11.8, Immature Granulocyte % (Auto) 0, Neutrophils (%) (Auto) 82H, Lymphocytes (%) (Auto) 11L, Monocytes (%) (Auto) 5, Eosinophils (%) (Auto) 1, Basophils (%) (Auto) 0, Neutrophils # (Auto) 12.0H, Lymphocytes # (Auto) 1.5, Monocytes # (Auto) 0.7, Eosinophils # (Auto) 0.2, Basophils # (Auto) 0.1, Immature Granulocyte # (Auto) 0.1, Sodium Level 139, Potassium Level 3.2L, Chloride Level 110H, Carbon Dioxide Level 19L, Anion Gap 10, Blood Urea Nitrogen 17, Creatinine 0.98, Estimat Glomerular Filtration Rate 97, BUN/Creatinine Ratio 17, Glucose Level 88, Calcium Level 8.1L Microbiology 10/06/21 MRSA Screen - Final, Complete MRSA not isolated 10/05/21 Blood Culture - Preliminary, Resulted No growth Radiology NAME: CHAIM POOLE [facility] REC#: [id number] PT STATUS: ADM IN : 1975 PHYSICIAN: NELSON BORGES MD ADMIT DATE: 10/06/21/ICU Draft Date of Exam:10/05/21 CT EDENILSON CHEST/NOANG ABD-PELV W INDICATION: Chest pain, abdominal pain, hypoxia CTA chest, abdomen and pelvis Thin axial sections through the chest, abdomen and pelvis are obtained following intravenous contrast bolus. Multiplanar MIP images were reconstructed and reviewed. All CT scans use one or more of the following dose optimizing techniques: automated exposure control, MA and/or KvP adjustment based on patient size and exam type or iterative reconstruction. No priors CHEST: No intraluminal pulmonary arterial filling defects are identified. The thoracic aorta appeared nonacute. There is no pleural or pericardial effusion. There is herniation of peritoneal fluid and perigastric fat through the hiatus. No significant herniation of stomach. The stomach itself was distended. Lung showed a 5 lobed bilateral lower greater than upper lobe distribution of centrilobular nodules with largely tree-in-bud morphology as well as some dependent zones of atelectatic consolidation. Findings suggest bronchiolitis including infectious etiologies of a mycobacterial, fungal or bacterial. No pneumothorax. No acute chest wall pathology. No soft tissue density lung mass. No adenopathy. ABDOMEN/PELVIS: Heterogeneously enhancing partially exophytic mass off the upper pole of the left kidney is directed anteromedially and measured 3.2 x 2.6 cm in the axial plane, the appearance is suspect for renal cell carcinoma. There are additional simple benign Bosniak 2 left renal cortical cysts as well as bilateral 2 to 3 mm nonobstructing stones within lower pole calyces. The adrenals are negative, the renal veins and cava are patent. No findings of extracapsular extension of suspected neoplasm. No pathological appearing abdominal pelvic mesenteric or retroperitoneal lymph nodes. There is no suspicious lytic or sclerotic bony lesion. Stomach is distended but appeared nonfocal. There is no small or large bowel obstruction. The liver unremarkable. No bile duct dilatation. Spleen and pancreas unremarkable. The aortoiliac and mesenteric vessels patent and nonaneurysmal. There is no small or large bowel obstruction. There is noninflamed mild sigmoid diverticulosis. No diverticulitis, the appendix air-containing visualized and normal. There are degenerative changes to the bony structures. IMPRESSION: CHEST: Bilateral pneumonia favored to be a infectious bronchiolitis, mild bibasilar atelectasis, no evidence for PE or acute aortic pathology. No thoracic adenopathy or suspect lung mass. Herniation of perigastric fat into the paraesophageal lower posterior mediastinum. ABDOMEN/PELVIS: 1. Findings suspicious for renal cell carcinoma left upper pole without features suggestive of regional or distant metastasis. 2. There are superimposed benign renal cyst and nonobstructing renal calculi. Mild noninflamed sigmoid diverticulosis. No bowel, biliary or urinary tract obstruction with a normal appendix. Case discussed with the emergency room physician at time of this dictation relaying the suspicion for a renal malignancy, otherwise in agreement with preliminary report Dictated on workstation # [id number] Dict: 10/06/21 0750 Trans: 10/06/21 0806 CV [id number] Interpreted by: GUILLERMINA PRASAD Electronically signed by: NAME: CHAIM POOLE [facility] REC#: [id number] PT STATUS: REG ER : 1975 PHYSICIAN: NELSON BORGES MD ADMIT DATE: 10/05/21/ER Signed Date of Exam:10/05/21 CHEST 1 VIEW, AP/PA ONLY CHEST 1 VIEW, AP/PA ONLY Indication: Chest pain. Comparison: None available. Findings: Left basilar patchy consolidation. No pleural effusion or pneumothorax. Heart is mildly enlarged. Impression: 1. Left basilar patchy consolidations are most likely due to pneumonia. 2. Advise followup PA and lateral chest radiographs in 4 weeks after appropriate medical management to ensure resolution. Dictated by: Dictated on workstation # [id number] Dict: 10/05/212131 Trans: 10/05/212229 [facility] [id number] Interpreted by: ZACHARIAH CHASE MD Electronically signed by: ZACHARIAH CHASE MD 10/05/212229 A/P-Cardiology Assessment/Admission Diagnosis Episode of unresponsiveness reversed with Narcan Pneumonia - management per medical services Chest pain - no evidence of ACS - by description appears musculoskeletal likely d/t CPR Methamphetamine abuse - tested positive this admission - cessation advised Hep C (+) - H/O IV drug use Tobaccoism - cessation advised Discussion and Recomendations Episode of unresponsiveness resolved with Narcan Chest pain likely musculoskeletal d/t chest compressions Echocardiogram to eval structure and function Management of pneumonia is with medical/eICU services Monitor lab replace electrolytes Monitor for withdrawal - management per medical/eICU services Further recs will be based on his hospital course We would like to thank medical services for this consult Clinical Quality Measures AMI/AHF: ASA po Prior to arrival: KAYLYN Helms Oct 06, 2021 09:00
[2021-10-06] MEDS: ENOXAPARIN 40 MG/0.4 ML (LOVENOX) SYR SC SCH (09:38)
[2021-10-06] MEDS: FAMOTIDINE 20MG/2ML IV (PEPCID) IV SCH ×2 (09:39→20:27)
[2021-10-06] MEDS ORDERED: LISI40TA9 PO (09:56)
[2021-10-06] MEDS ORDERED: SIMETHICONE 80 MG (MYLICON) CHEW PO NR (11:00)
--- NOTE | 2021-10-06 12:37 | History & Physical ---
ONUR BRODY III MED STUDENT 10/06/21 1237: HPI History of Present Illness: Pt is a 46yo male w/ pmhx of HTN and substance abuse who was brought to the ED by EMS following an unresponsive event. When questioned, pt states that he was eating a sandwich and took "1/2 a blue pill that he thought was xanax or valium that he got from a friend, and the next thing he knew he was waking up in the ambulance". Pt required up to 4-6L of O2 via NC to keep saturations >90%. He denies something like this ever happening before. Does endorse a history of IV drug use 25 years ago when asked initially, however notes that he has used meth more recent than this and currently in a rehab program. Prior to this unconscious event pt denies any fevers, chest pain, sob, abdominal pain. Does endorse a non-productive cough that he describes as asthma like that he notices after the first cigarette of the day. Endorses chest pain on exam this AM which he relates to the compressions that he received prior to arrival by EMS. Source: patient Exam Limitations: no limitations Date seen by provider: Oct 06, 2021 Time Seen by Provider: 08:40 Attending Physician Syed Cardenas MD PCP No,Local Physician Consult Date of Admission Oct 06, 2021 at 01:00 Home Medications Home Medications Reviewed patient Home Medication Reconciliation performed by pharmacy medication reconciliations facility maintenance technician and/or nursing. Patients Allergies have been reviewed. Allergies Coded Allergies: Sulfa (Sulfonamide Antibiotics) (Verified Allergy, Unknown, 10/06/21) [id number] Hx Patient Social History Marrital Status: Employed/Student: unemployed Smoking Status: Current Everyday Smoker (describes "1ppd every other day" for 5 years now) 2nd Hand Smoke Exposure: No Recent Hopitalizations: No Alcohol Use?: Yes (describes infrequent use of alcohol) Substance type: Amphetamines, Other (xanax/valium) Tobacco type used: Cigarettes Have you traveled recently?: No Immunizations Up To Date Influenza Vaccine Up-to-Date: No; Not Current Past Medical History HTN, migraines occ etoh use/ last drink: 3.08.28 Family Medical History Significant Family History: Heart Disease (heart problems in dad) Review of Systems ([facility]) Constitutional: No chills, No diaphoresis, No dizziness, No fever, No malaise, No weakness EENTM: no symptoms reported Respiratory: cough; No dyspnea on exertion, No hemoptysis; short of breath (endorses some SOB today, no baseline O2 needs [employer] G[employer]); No stridor, No wheezing Cardiovascular: see HPI, chest pain Gastrointestinal: no symptoms reported Genitourinary: no symptoms reported Musculoskeletal: no symptoms reported Skin: no symptoms reported Psychiatric/Neurological: No Symptoms Reported Reviewed Test Results Reviewed Test Results Lab 10/06/21 10/06/21 10/06/21 10/06/21 01:41 01:49 02:00 02:09 Temp 37.3 Pulse 85 93 84 Resp B/P (MAP) 129/87 126/84 Pulse Ox 98 98 O2 Delivery Nasal Cannula Nasal Cannula Nasal Cannula O2 Flow Rate 2.00 2.00 2.00 FiO2 98 10/06/21 10/06/21 10/06/21 10/06/21 02:15 02:30 02:45 03:00 Pulse 87 91 91 92 Resp B/P (MAP) 121/86 121/90 119/88 120/90 Pulse Ox 97 96 95 95 O2 Delivery Nasal Cannula Nasal Cannula Nasal Cannula Nasal Cannula O2 Flow Rate 2.00 2.00 2.00 2.00 10/06/21 10/06/21 10/06/21 10/06/21 04:00 04:00 04:00 05:00 Temp 37.6 Pulse 87 86 Resp B/P (MAP) 120/78 108/62 Pulse Ox 93 96 93 O2 Delivery Nasal Cannula Nasal Cannula Nasal Cannula O2 Flow Rate 2.00 2.00 2.00 10/06/21 10/06/21 10/06/21 10/06/21 06:00 07:00 07:00 07:47 Temp 37.6 Pulse 87 82 91 Resp 24 B/P (MAP) 113/73 111/65 Pulse Ox 96 95 O2 Delivery Nasal Cannula Nasal Cannula O2 Flow Rate 2.00 2.00 10/06/21 10/06/21 10/06/21 10/06/21 08:00 09:00 09:15 09:30 Pulse 85 79 Resp B/P (MAP) 108/67 111/71 Pulse Ox 94 94 96 O2 Delivery Nasal Cannula Nasal Cannula Room Air Room Air O2 Flow Rate 2.00 2.00 10/06/21 10:00 Pulse 80 Resp 29 Pulse Ox 97 O2 Delivery Nasal Cannula O2 Flow Rate 2.00 10/06/21 00:00 Intake Total 1000 ml Balance 1000 ml Laboratory Tests Test 10/05/21 21:03 10/05/21 21:40 10/05/21 22:15 10/06/21 01:30 Range/Units Influenza Type A (RT-PCR) Not Detected Not Detecte Influenza Type B (RT-PCR) Not Detected Not Detecte SARS-CoV-2 RNA (RT-PCR) Not Detected Not Detecte White Blood Count 17.5 H 4.3-11.0 10^3/uL Red Blood Count 4.65 4.30-5.52 10^6/uL Hemoglobin 13.6 13.3-17.7 g/dL Hematocrit 42 40-54 % Mean Corpuscular Volume 91 80-99 fL Mean Corpuscular Hemoglobin 29 25-34 pg Mean Corpuscular Hemoglobin Concent 32 32-36 g/dL Red Cell Distribution Width 13.2 10.0-14.5 % Platelet Count 173 130-400 10^3/uL Mean Platelet Volume 11.5 9.0-12.2 fL Immature Granulocyte % (Auto) 1 % Neutrophils (%) (Auto) 85 H 42-75 % Lymphocytes (%) (Auto) 6 L 12-44 % Monocytes (%) (Auto) 7 0-12 % Eosinophils (%) (Auto) 1 0-10 % Basophils (%) (Auto) 0 0-10 % Neutrophils # (Auto) 14.8 H 1.8-7.8 10^3/uL Lymphocytes # (Auto) 1.1 1.0-4.0 10^3/uL Monocytes # (Auto) 1.2 H 0.0-1.0 10^3/uL Eosinophils # (Auto) 0.1 0.0-0.3 10^3/uL Basophils # (Auto) 0.1 0.0-0.1 10^3/uL Immature Granulocyte # (Auto) 0.2 H 0.0-0.1 10^3/uL Neutrophils % (Manual) 86 % Lymphocytes % (Manual) 7 % Monocytes % (Manual) 4 % Band Neutrophils 3 % Blood Morphology Comment NORMAL Prothrombin Time 13.7 12.2-14.7 SEC INR Comment 1.0 0.8-1.4 Activated Partial Thromboplast Time 24 24-35 SEC D-Dimer 0.62 H 0.00-0.49 UG/ML Sodium Level 145 135-145 MMOL/L Potassium Level 3.3 L 3.6-5.0 MMOL/L Chloride Level 109 H 98-107 MMOL/L Carbon Dioxide Level 23 21-32 MMOL/L Anion Gap 13 5-14 MMOL/L Blood Urea Nitrogen 27 H 7-18 MG/DL Creatinine 1.44 H 0.60-1.30 MG/DL Estimat Glomerular Filtration Rate 61 BUN/Creatinine Ratio 19 Glucose Level 109 H 70-105 MG/DL Calcium Level 8.4 L 8.5-10.1 MG/DL Corrected Calcium 8.7 8.5-10.1 MG/DL Magnesium Level 2.4 1.6-2.4 MG/DL Total Bilirubin 0.6 0.1-1.0 MG/DL Aspartate Amino Transf (AST/SGOT) 40 H 5-34 U/L Alanine Aminotransferase (ALT/SGPT) 63 H 0-55 U/L Alkaline Phosphatase 88 40-136 U/L Myoglobin 255.2 H 10.0-92.0 NG/ML Troponin I < 0.028 <0.028 NG/ML C-Reactive Protein High Sensitivity 0.19 0.00-0.50 MG/DL B-Type Natriuretic Peptide 34.5 <100.0 PG/ML Total Protein 6.1 L 6.4-8.2 GM/DL Albumin 3.6 3.2-4.5 GM/DL Procalcitonin 0.03 <0.10 NG/ML Serum Alcohol < 10 <10 MG/DL Lactic Acid Level 1.13 0.50-2.00 MMOL/L Urine Color YELLOW Urine Clarity CLEAR Urine pH 6.0 5-9 Urine Specific [place] 1.020 1.016-1.022 Urine Protein TRACE H NEGATIVE Urine Glucose (UA) NEGATIVE NEGATIVE Urine Ketones NEGATIVE NEGATIVE Urine Nitrite NEGATIVE NEGATIVE Urine Bilirubin NEGATIVE NEGATIVE Urine Urobilinogen 0.2 < = 1.0 MG/DL Urine Leukocyte Esterase NEGATIVE NEGATIVE Urine RBC (Auto) NEGATIVE NEGATIVE Urine RBC NONE /HPF Urine WBC NONE /HPF Urine Crystals NONE /LPF Urine Bacteria NEGATIVE /HPF Urine Casts PRESENT /LPF Urine Hyaline Casts 0-2 H /LPF Urine Mucus NEGATIVE /LPF Urine Culture Indicated CULTURE PENDING Urine Opiates Screen NEGATIVE NEGATIVE Urine Oxycodone Screen NEGATIVE NEGATIVE Urine Methadone Screen NEGATIVE NEGATIVE Urine Propoxyphene Screen NEGATIVE NEGATIVE Urine Barbiturates Screen NEGATIVE NEGATIVE Ur Tricyclic Antidepressants Screen NEGATIVE NEGATIVE Urine Phencyclidine Screen NEGATIVE NEGATIVE Urine Amphetamines Screen POSITIVE H NEGATIVE Urine Methamphetamines Screen POSITIVE H NEGATIVE Urine Benzodiazepines Screen NEGATIVE NEGATIVE Urine Cocaine Screen NEGATIVE NEGATIVE Urine Cannabinoids Screen NEGATIVE NEGATIVE Test 10/06/21 04:30 10/06/21 04:45 Range/Units White Blood Count 16.4 H 4.3-11.0 10^3/uL Red Blood Count 4.71 4.30-5.52 10^6/uL Hemoglobin 13.8 13.3-17.7 g/dL Hematocrit 42 40-54 % Mean Corpuscular Volume 90 80-99 fL Mean Corpuscular Hemoglobin 29 25-34 pg Mean Corpuscular Hemoglobin Concent 33 32-36 g/dL Red Cell Distribution Width 13.1 10.0-14.5 % Platelet Count 168 130-400 10^3/uL Mean Platelet Volume 11.9 9.0-12.2 fL Immature Granulocyte % (Auto) 1 % Neutrophils (%) (Auto) 89 H 42-75 % Lymphocytes (%) (Auto) 4 L 12-44 % Monocytes (%) (Auto) 6 0-12 % Eosinophils (%) (Auto) 0 0-10 % Basophils (%) (Auto) 0 0-10 % Neutrophils # (Auto) 14.6 H 1.8-7.8 10^3/uL Lymphocytes # (Auto) 0.7 L 1.0-4.0 10^3/uL Monocytes # (Auto) 0.9 0.0-1.0 10^3/uL Eosinophils # (Auto) 0.0 0.0-0.3 10^3/uL Basophils # (Auto) 0.1 0.0-0.1 10^3/uL Immature Granulocyte # (Auto) 0.1 0.0-0.1 10^3/uL Sodium Level 141 135-145 MMOL/L Potassium Level 3.4 L 3.6-5.0 MMOL/L Chloride Level 110 H 98-107 MMOL/L Carbon Dioxide Level 19 L 21-32 MMOL/L Anion Gap 12 5-14 MMOL/L Blood Urea Nitrogen 24 H 7-18 MG/DL Creatinine 1.00 0.60-1.30 MG/DL Estimat Glomerular Filtration Rate 95 BUN/Creatinine Ratio 24 Glucose Level 104 70-105 MG/DL Calcium Level 8.3 L 8.5-10.1 MG/DL Corrected Calcium 8.7 8.5-10.1 MG/DL Phosphorus Level 4.4 2.3-4.7 MG/DL Magnesium Level 2.1 1.6-2.4 MG/DL Total Bilirubin 1.1 H 0.1-1.0 MG/DL Aspartate Amino Transf (AST/SGOT) 31 5-34 U/L Alanine Aminotransferase (ALT/SGPT) 59 H 0-55 U/L Alkaline Phosphatase 74 40-136 U/L Total Creatine Kinase 235 H 30-200 U/L Troponin I < 0.028 <0.028 NG/ML Total Protein 6.0 L 6.4-8.2 GM/DL Albumin 3.5 3.2-4.5 GM/DL Triglycerides Level 54 <150 MG/DL Cholesterol Level 155 < 200 MG/DL LDL Cholesterol Direct 121 1-129 MG/DL VLDL Cholesterol 11 5-40 MG/DL HDL Cholesterol 36 L 40-60 MG/DL Blood Gas Puncture Site RIGHT RADIAL Blood Gas Patient Temperature 37.6 Arterial Blood pH 7.36 L 7.37-7.43 Arterial Blood Partial Pressure CO2 44 35-45 MMHG Arterial Blood Partial Pressure O2 82 79-93 MMHG Arterial Blood HCO3 24 23-27 MMOL/L Arterial Blood Total CO2 25.2 21.0-31.0 MMOL/L Arterial Blood Oxygen Saturation 96 94-100 % Arterial Blood Base Excess -0.6 -2.5-2.5 MMOL/L Paul Test YES-POS Blood Gas Ventilator Setting NO Blood Gas Inspired Oxygen 2L NC Radiology NAME: CHAIM POOLE [facility] REC#: [id number] PT STATUS: ADM IN : 1975 PHYSICIAN: NELSON BORGES MD ADMIT DATE: 10/06/21/ICU Draft Date of Exam:10/05/21 CT EDENILSON CHEST/NOANG ABD-PELV W INDICATION: Chest pain, abdominal pain, hypoxia CTA chest, abdomen and pelvis Thin axial sections through the chest, abdomen and pelvis are obtained following intravenous contrast bolus. Multiplanar MIP images were reconstructed and reviewed. All CT scans use one or more of the following dose optimizing techniques: automated exposure control, MA and/or KvP adjustment based on patient size and exam type or iterative reconstruction. No priors CHEST: No intraluminal pulmonary arterial filling defects are identified. The thoracic aorta appeared nonacute. There is no pleural or pericardial effusion. There is herniation of peritoneal fluid and perigastric fat through the hiatus. No significant herniation of stomach. The stomach itself was distended. Lung showed a 5 lobed bilateral lower greater than upper lobe distribution of centrilobular nodules with largely tree-in-bud morphology as well as some dependent zones of atelectatic consolidation. Findings suggest bronchiolitis including infectious etiologies of a mycobacterial, fungal or bacterial. No pneumothorax. No acute chest wall pathology. No soft tissue density lung mass. No adenopathy. ABDOMEN/PELVIS: Heterogeneously enhancing partially exophytic mass off the upper pole of the left kidney is directed anteromedially and measured 3.2 x 2.6 cm in the axial plane, the appearance is suspect for renal cell carcinoma. There are additional simple benign Bosniak 2 left renal cortical cysts as well as bilateral 2 to 3 mm nonobstructing stones within lower pole calyces. The adrenals are negative, the renal veins and cava are patent. No findings of extracapsular extension of suspected neoplasm. No pathological appearing abdominal pelvic mesenteric or retroperitoneal lymph nodes. There is no suspicious lytic or sclerotic bony lesion. Stomach is distended but appeared nonfocal. There is no small or large bowel obstruction. The liver unremarkable. No bile duct dilatation. Spleen and pancreas unremarkable. The aortoiliac and mesenteric vessels patent and nonaneurysmal. There is no small or large bowel obstruction. There is noninflamed mild sigmoid diverticulosis. No diverticulitis, the appendix air-containing visualized and normal. There are degenerative changes to the bony structures. IMPRESSION: CHEST: Bilateral pneumonia favored to be a infectious bronchiolitis, mild bibasilar atelectasis, no evidence for PE or acute aortic pathology. No thoracic adenopathy or suspect lung mass. Herniation of perigastric fat into the paraesophageal lower posterior mediastinum. ABDOMEN/PELVIS: 1. Findings suspicious for renal cell carcinoma left upper pole without features suggestive of regional or distant metastasis. 2. There are superimposed benign renal cyst and nonobstructing renal calculi. Mild noninflamed sigmoid diverticulosis. No bowel, biliary or urinary tract obstruction with a normal appendix. Case discussed with the emergency room physician at time of this dictation relaying the suspicion for a renal malignancy, otherwise in agreement with preliminary report Dictated on workstation # [id number] Dict: 10/06/21 0750 Trans: 10/06/21 0806 CVB [id number] Interpreted by: GUILLERMINA PRASAD Electronically signed by: NAME: CHAIM POOLE REC#: [id number] PT STATUS: REG ER : 1975 PHYSICIAN: NELSON BORGES MD ADMIT DATE: 10/05/21/ER Signed Date of Exam:10/05/21 CHEST 1 VIEW, AP/PA ONLY CHEST 1 VIEW, AP/PA ONLY Indication: Chest pain. Comparison: None available. Findings: Left basilar patchy consolidation. No pleural effusion or pneumothorax. Heart is mildly enlarged. Impression: 1. Left basilar patchy consolidations are most likely due to pneumonia. 2. Advise followup PA and lateral chest radiographs in 4 weeks after appropriate medical management to ensure resolution. Dictated by: Dictated on workstation # [id number] Dict: 10/05/212131 Trans: 10/05/212229 [facility] [id number] Interpreted by: ZACHARIAH CHASE MD Electronically signed by: ZACHARIAH CHASE MD 10/05/212229 Physical Exam-([facility]) Physical Exam Vital Signs VS - Last 72 Hours, by Label 10/05/21 10/05/21 10/06/21 10/06/21 20:50 20:50 01:41 01:49 Temp 36.4 Pulse 78 85 Resp 19 B/P (MAP) 106/78 (87) Pulse Ox 92 92 O2 Delivery Nasal Cannula Room Air Nasal Cannula O2 Flow Rate 6.00 2.00 FiO2 98 10/06/21 10/06/21 10/06/21 10/06/21 02:00 02:09 02:15 02:30 Temp 37.3 Pulse 93 84 87 91 Resp 26 21 12 24 B/P (MAP) 129/87 126/84 121/86 121/90 Pulse Ox 98 98 97 96 O2 Delivery Nasal Cannula Nasal Cannula Nasal Cannula Nasal Cannula O2 Flow Rate 2.00 2.00 2.00 2.00 10/06/21 10/06/21 10/06/21 10/06/21 02:45 03:00 04:00 04:00 Temp 37.6 Pulse 91 92 87 Resp 17 27 27 B/P (MAP) 119/88 120/90 120/78 Pulse Ox 95 95 93 O2 Delivery Nasal Cannula Nasal Cannula Nasal Cannula O2 Flow Rate 2.00 2.00 2.00 10/06/21 10/06/21 10/06/21 10/06/21 04:00 05:00 06:00 07:00 Pulse 86 87 82 Resp 22 23 24 B/P (MAP) 108/62 113/73 111/65 Pulse Ox 96 93 96 95 O2 Delivery Nasal Cannula Nasal Cannula Nasal Cannula Nasal Cannula O2 Flow Rate 2.00 2.00 2.00 2.00 10/06/21 10/06/21 10/06/21 10/06/21 07:00 07:47 08:00 09:00 Temp 37.6 Pulse 91 85 79 Resp 21 B/P (MAP) 108/67 111/71 Pulse Ox 94 94 O2 Delivery Nasal Cannula Nasal Cannula O2 Flow Rate 2.00 2.00 10/06/21 10/06/21 10/06/21 09:15 09:30 10:00 Pulse 80 Resp 29 Pulse Ox 96 97 O2 Delivery Room Air Room Air Nasal Cannula O2 Flow Rate 2.00 Capillary Refill : Less Than 3 Seconds General Appearance: WD/WN, no apparent distress HEENT: PERRL/EOMI, pharynx normal Neck: non-tender, full range of motion, supple, normal inspection Respiratory: chest non-tender, no respiratory distress, no accessory muscle use, crackles (bilateral, basilar inspiratory crackles appreciated); No stridor, No wheezing Cardiovascular: normal peripheral pulses, regular rate, rhythm, no edema, no JVD, no murmur Peripheral Pulses: 2+ Radial Pulses (R), 2+ Radial Pulses (L) Gastrointestinal: normal bowel sounds, non tender, soft, no pulsatile mass Back: normal inspection, no CVA tenderness, no vertebral tenderness Extremities: normal range of motion, non-tender, normal inspection, no pedal edema, no calf tenderness, normal capillary refill Neurologic/Psychiatric: batch still operator II-XII nml as tested, no motor/sensory deficits, alert, normal mood/affect, oriented x 3 Skin: normal color, warm/dry Lymphatic: no adenopathy Assessment/Plan Assessment/Plan (1) Overdose Status: Acute Assessment & Plan: States that he took 1/2 a blue pill he believed to be xanax or valium that he received from friend. Was responsive to narcan by EMS however only tested positive for amphetamines/methamphetamines on UDS. Currently in rehab program outpatient. No acute needs at this time Qualifiers: Qualified Codes: T50.901A - Poisoning by unspecified drugs, medicaments and biological substances, accidental (unintentional), initial encounter (2) Hypoxia Status: Acute Assessment & Plan: Acute hypoxia 2/2 accidental overdose and subsequent chest compressions. Denies baseline O2 use [employer]. On 2L on exam this AM and satting >95%. Will trial patient off of O2 and can likely d/c O2 if sats remain >92% w/ trail (3) Bronchiolitis Status: Acute Assessment & Plan: Admission CT chest showed bilateral pneumonia favored to be a infectious bronchiolitis, mild bibasilar atelectasis, no evidence for PE or acute aortic pathology. No thoracic adenopathy or suspect lung mass. L eukocytosis of 17.5 on admission, decreased to 16.4 on 10/06. Started on IV zosyn while in ED. Afebrile. Procal, CRP within normal limits. Will transition to oral antibiotics and likely d/c home (4) Chest pain Status: Acute Assessment & Plan: Pt describes sternal chest pain that he relates to compressions he received. EKG w/o ischemic changes. Troponin not elevated. BNP within normal levels. Low concern for cardiac etiology of pain, however car diology consulted for this pain. Appreciate recommendations. Qualifiers: Qualified Codes: R07.9 - Chest pain, unspecified (5) RUFUS (acute kidney injury) Status: Acute Assessment & Plan: Admission BUN 27 and sCr 1.44. Normalized to 24 and 1.00 on 10/06. Initial elevation in values likely component of unresponsive episode. (6) Abnormal CT scan, kidney Status: Acute Assessment & Plan: On admission CT, findings suspicious for renal cell carcinoma left upper pole without features suggestive of regional or distant metastasis. Superimposed benign renal cyst and nonobstructing renal calculi. Mild noninflamed sigmoid diverticulosis. No bowel, biliary or urinary tract obstruction with a normal appendix. Left upper pole findings will likely need outpatient follow-up after d/c home Clinical Quality Measures AMI/AHF: ASA po Prior to arrival: No SYED CARDENAS MD 10/06/21 1403: Home Medications Allergies Coded Allergies: Sulfa (Sulfonamide Antibiotics) (Verified Allergy, Unknown, 10/06/21) Physical Exam-(PSYCHIATRIC) Physical Exam General Appearance: WD/WN, no apparent distress Respiratory: no respiratory distress, no accessory muscle use, rales (bibasilar, left greater than right) Cardiovascular: regular rate, rhythm, no murmur Gastrointestinal: normal bowel sounds, non tender, soft Extremities: no pedal edema Neurologic/Psychiatric: batch still operator II-XII nml as tested, alert, normal mood/affect, oriented x 3; No motor weakness Skin: diaphoresis (face) Assessment/Plan Assessment/Plan Admission Status: Inpatient Order (span 2 midnights) Reason for Inpatient Admission: history of possible cardiac arrest Supervisory-Addendum Brief Verification & Attestation Participated in pt care: history, MDM, physical Personally performed: exam, history, MDM Care discussed with: Medical Student Procedures: n/a I personally saw and examined patient and confirmed the history documented by the medical student. I did my own physical exam, and did not repeat the entire exam documented by the student, see my documentation for my exam. I directed the plan of care as documented by the medical student. ONUR BRODY III MED STUDENT Oct 06, 2021 12:37 SYED CARDENAS MD Oct 06, 2021 14:03
--- NOTE | 2021-10-06 14:37 | Consultation-Cardiology ---
HPI-Cardiology Cardiology Consultation: Date of Consultation 10/06/21 Time Seen by a Provider: 09:00 Date of Admission Attending Physician Mayra Mcgowan MD Admitting Physician No,Local Physician Consulting Physician GUTIERREZ BOSE MD, MA, FACP, FACC, [facility] [place] Physician requesting Card consult: Dr Mcgowan HPI: Chief Complaint: Reason for Card consult: Unresponsiveness Mr. Keller is a 46 yr old male who has been admitted to ICU 7 from the ED. He does not recall the events leading up to his admission. He can only recall that he took either a Valium or Xanax (not prescribed to him) and the next thing he recalls he was brought to the ED. He denies any c/o CP, SOB, palpitations, syncope or near syncope prior to this event. He reports his chest is sore this morning, worse with a deep breath. He reports he smoke cigs. He reports he has used methamphetamines, last usage a week ago, although he tested positive this admission. Review of Systems-Cardiology Review of Systems Constitutional: No chills, No fever; malaise Eyes: No vision change Ears/Nose/Throat: No epistaxis, No recent hearing loss Respiratory: As described under HPI Cardiovascular: As described under HPI Gastrointestinal: No constipation, No diarrhea, No nausea, No vomiting Genitourinary: No dysuria, No hematuria Musculoskeletal: As describe under HPI Skin: No rash on exposed areas, No ulcerations on exposed areas Psychiatric/Neurological: anxiety; No seizure, No focal weakness, No syncope Hematologic: No bleeding abnormalities [id number] Hx Patient Social History Marrital Status: Employed/Student: unemployed Smoking Status: Current Everyday Smoker (describes "1ppd every other day" for 5 years now) 2nd Hand Smoke Exposure: No Have you traveled recently?: No Alcohol Use?: Yes (describes infrequent use of alcohol) Substance type: Amphetamines, Other (xanax/valium) Pt feels they are or have been: No Tobacco type used: Cigarettes Past Medical History PMH As described under Assessment. Family Medical History Family Medical History: He reports his father had CAD, with his first MN at age 40. Allergies and Home Medications Allergies Coded Allergies: Sulfa (Sulfonamide Antibiotics) (Verified Allergy, Unknown, 10/06/21) Patient Home Medication List Home Medication List Reviewed: Yes Lisinopril (Lisinopril) 40 Mg Tablet, 40 MG PO DAILY, (Reported) Entered as Reported by: MACK GALINDO on 10/06/21 0956 Last Action: Held Discontinued Medications Cephalexin (Keflex) 500 Mg Capsule, 500 MG PO Q6H Discontinued Reason: No Longer Taking Prescribed by: CHAY ALEJANDRO on 02/18/17 1403 Last Action: Discontinued Methylprednisolone (Medrol Dose Pack) 4 Mg/Dose-Pack Tab.ds.pk, 0 PO UD Discontinued Reason: No Longer Taking Prescribed by: SHOSHANA PANG on 04/12/091704 Last Action: Discontinued Sulfamethoxazole/Trimethoprim (Bactrim DS) 1 Each Tablet, 1 EACH PO BID Discontinued Reason: No Longer Taking Prescribed by: SHOSHANA PANG on 04/12/091704 Last Action: Discontinued Physical Exam-Cardiology Physical Exam Vital Signs/I&O 10/06/21 10/06/21 10/06/21 10/06/21 02:45 03:00 04:00 04:00 Temp 37.6 Pulse 91 92 87 Resp B/P (MAP) 119/88 120/90 120/78 Pulse Ox 95 95 93 O2 Delivery Nasal Cannula Nasal Cannula Nasal Cannula O2 Flow Rate 2.00 2.00 2.00 10/06/21 10/06/21 10/06/21 10/06/21 04:00 05:00 06:00 07:00 Pulse 86 87 82 Resp 22 23 24 B/P (MAP) 108/62 113/73 111/65 Pulse Ox 96 93 96 95 O2 Delivery Nasal Cannula Nasal Cannula Nasal Cannula Nasal Cannula O2 Flow Rate 2.00 2.00 2.00 2.00 10/06/21 10/06/21 10/06/21 10/06/21 07:00 07:47 08:00 09:00 Temp 37.6 Pulse 91 85 79 Resp 21 B/P (MAP) 108/67 111/71 Pulse Ox 94 94 O2 Delivery Nasal Cannula Nasal Cannula O2 Flow Rate 2.00 2.00 10/06/21 10/06/21 10/06/21 10/06/21 09:15 09:30 10:00 12:00 Temp 37.9 Pulse 80 Resp 29 Pulse Ox 96 97 O2 Delivery Room Air Room Air Nasal Cannula O2 Flow Rate 2.00 3/09/2810/06/21 10/06/21 12:47 12:55 13:00 Temp 38.0 Pulse 83 92 Resp 24 B/P (MAP) 121/75 Pulse Ox 91 91 O2 Delivery Room Air Room Air 10/06/21 00:00 Intake Total 1000 ml Balance 1000 ml Capillary Refill : Less Than 3 Seconds Constitutional: AAO x 3, well-developed, well-nourished HEENT: PERRL, hearing is well preserved; No oral hygience is good Neck: No carotid bruit; carotid pulses are 2 + bilaterally Respiratory: No accessory muscle use, No respiratory distress; chest expansion is symmetric, chest is bilaterally symmetric, rhonchi (scattered), other (coarse breath sounds) Cardiovascular: regular rate-rhythm; No JVD; S1 and S2 Gastrointestinal: No tender; soft, round, audible bowel sounds Extremities: no lower extremity edema bilateral Neurologic/Psychiatric: grossly intact (moves all extremities) Skin: No rash on exposed areas, No ulcerations on exposed areas Lymphatic: no adenopathy Data Review Labs Laboratory Tests 10/05/21 21:03: Influenza Type A (RT-PCR) Not Detected, Influenza Type B (RT-PCR) Not Detected, SARS-CoV-2 RNA (RT-PCR) Not Detected 10/05/21 21:40: White Blood Count 17.5H, Red Blood Count 4.65, Hemoglobin 13.6, Hematocrit 42, Mean Corpuscular Volume 91, Mean Corpuscular Hemoglobin 29, Mean Corpuscular Hemoglobin Concent 32, Red Cell Distribution Width 13.2, Platelet Count 173, Mean Platelet Volume 11.5, Immature Granulocyte % (Auto) 1, Neutrophils (%) (Auto) 85H, Lymphocytes (%) (Auto) 6L, Monocytes (%) (Auto) 7, Eosinophils (%) (Auto) 1, Basophils (%) (Auto) 0, Neutrophils # (Auto) 14.8H, Lymphocytes # (Auto) 1.1, Monocytes # (Auto) 1.2H, Eosinophils # (Auto) 0.1, Basophils # (Auto) 0.1, Immature Granulocyte # (Auto) 0.2H, Neutrophils % (Manual) 86, Lymphocytes % (Manual) 7, Monocytes % (Manual) 4, Band Neutrophils 3, Blood Morphology Comment NORMAL, Prothrombin Time 13.7, INR Comment 1.0, Activated Partial Thromboplast Time 24, D-Dimer 0.62H, Sodium Level 145, Potassium Level 3.3L, Chloride Level 109H, Carbon Dioxide Level 23, Anion Gap 13, Blood Urea Nitrogen 27H, Creatinine 1.44H, Estimat Glomerular Filtration Rate 61, BUN/Creatinine Ratio 19, Glucose Level 109H, Calcium Level 8.4L, Corrected Calcium 8.7, Magnesium Level 2.4, Total Bilirubin 0.6, Aspartate Amino Transf (AST/SGOT) 40H, Alanine Aminotransferase (ALT/SGPT) 63H, Alkaline Phosphatase 88, Myoglobin 255.2H, Troponin I < 0.028, C-Reactive Protein High Sensitivity 0.19, B-Type Natriuretic Peptide 34.5, Total Protein 6.1L, Albumin 3.6, Procalcitonin 0.03, Serum Alcohol < 10 10/05/21 22:15: Lactic Acid Level 1.13 10/06/21 01:30: Urine Color YELLOW, Urine Clarity CLEAR, Urine pH 6.0, Urine Specific [place] 1.020, Urine Protein TRACEH, Urine Glucose (UA) NEGATIVE, Urine Ketones NEGATIVE, Urine Nitrite NEGATIVE, Urine Bilirubin NEGATIVE, Urine Urobilinogen 0.2, Urine Leukocyte Esterase NEGATIVE, Urine RBC (Auto) NEGATIVE, Urine RBC NONE, Urine WBC NONE, Urine Crystals NONE, Urine Bacteria NEGATIVE, Urine Casts PRESENT, Urine Hyaline Casts 0-2H, Urine Mucus NEGATIVE, Urine Culture Indicated CULTURE PENDING, Urine Opiates Screen NEGATIVE, Urine Oxycodone Screen NEGATIVE, Urine Methadone Screen NEGATIVE, Urine Propoxyphene Screen NEGATIVE, Urine Barbiturates Screen NEGATIVE, Ur Tricyclic Antidepressants Screen NEGATIVE, Urine Phencyclidine Screen NEGATIVE, Urine Amphetamines Screen POSITIVEH, Urine Methamphetamines Screen POSITIVEH, Urine Benzodiazepines Screen NEGATIVE, Urine Cocaine Screen NEGATIVE, Urine Cannabinoids Screen NEGATIVE 10/06/21 04:30: White Blood Count 16.4H, Red Blood Count 4.71, Hemoglobin 13.8, Hematocrit 42, Mean Corpuscular Volume 90, Mean Corpuscular Hemoglobin 29, Mean Corpuscular Hemoglobin Concent 33, Red Cell Distribution Width 13.1, Platelet Count 168, Mean Platelet Volume 11.9, Immature Granulocyte % (Auto) 1, Neutrophils (%) (Auto) 89H, Lymphocytes (%) (Auto) 4L, Monocytes (%) (Auto) 6, Eosinophils (%) (Auto) 0, Basophils (%) (Auto) 0, Neutrophils # (Auto) 14.6H, Lymphocytes # (Auto) 0.7L, Monocytes # (Auto) 0.9, Eosinophils # (Auto) 0.0, Basophils # (Auto) 0.1, Immature Granulocyte # (Auto) 0.1, Sodium Level 141, Potassium Level 3.4L, Chloride Level 110H, Carbon Dioxide Level 19L, Anion Gap 12, Blood Urea Nitrogen 24H, Creatinine 1.00, Estimat Glomerular Filtration Rate 95, BUN/Creatinine Ratio 24, Glucose Level 104, Calcium Level 8.3L, Corrected Calcium 8.7, Phosphorus Level 4.4, Magnesium Level 2.1, Total Bilirubin 1.1H, Aspartate Amino Transf (AST/SGOT) 31, Alanine Aminotransferase (ALT/SGPT) 59H, Alkaline Phosphatase 74, Total Creatine Kinase 235H, Troponin I < 0.028, Total P rotein 6.0L, Albumin 3.5, Triglycerides Level 54, Cholesterol Level 155, LDL Cholesterol Direct 121, VLDL Cholesterol 11, HDL Cholesterol 36L 10/06/21 04:45: Blood Gas Puncture Site RIGHT RADIAL, Blood Gas Patient Temperature 37.6, Arterial Blood pH 7.36L, Arterial Blood Partial Pressure CO2 44, Arterial Blood Partial Pressure O2 82, Arterial Blood HCO3 24, Arterial Blood Total CO2 25.2, Arterial Blood Oxygen Saturation 96, Arterial Blood Base Excess -0.6, Paul Test YES-POS, Blood Gas Ventilator Setting NO, Blood Gas Inspired Oxygen 2L NC A/P-Cardiology Assessment/Admission Diagnosis Episode of unresponsiveness reversed with Narcan - unresponsiveness likely related to medication/drug abuse Pneumonia - management per medical services Chest pain - no evidence of ACS - by description appears musculoskeletal likely d/t CPR Methamphetamine abuse - tested positive this admission - cessation advised Hep C (+) - H/O IV drug use Tobaccoism - cessation advised Discussion and Recomendations Echocardiogram to eval structure and function Management of pneumonia is with medical/eICU services Monitor lab replace electrolytes Monitor for withdrawal - management per medical/eICU services Further recs will be based on his hospital course We would like to thank Medical services for this consult Clinical Quality Measures AMI/AHF: ASA po Prior to arrival: GUTIERREZ Interiano MD FACP FAC CCDS Oct 06, 2021 14:37
[2021-10-06] MEDS: ACETAMINOPHEN 325 MG TABLET PO PRN (17:41)
[2021-10-07] MEDS: PIPERACILLIN SODIUM/TAZOBACTAM 4.5 GM in NS (IVPB) 100 ML IV SCH ×2 (04:44→13:12)
[2021-10-07] MEDS: ACETAMINOPHEN 325 MG TABLET PO PRN (04:53)
[2021-10-07 05:50] LABS: BASOPHILS # (AUTO) 0.1 10^3/uL (0.0-0.1); BASOPHILS % (AUTO) 0 % (0-10); EOSINOPHILS # (AUTO) 0.2 10^3/uL (0.0-0.3); EOSINOPHILS % (AUTO) 1 % (0-10); HEMATOCRIT 39 % (40-54); HEMOGLOBIN 12.7 g/dL (13.3-17.7); LYMPHOCYTES # (AUTO) 1.5 10^3/uL (1.0-4.0); LYMPHOCYTES % (AUTO) 11 % (12-44); MEAN CORPUSCULAR HEMOGLOBIN 30 pg (25-34); MEAN CORPUSCULAR HGB CONC 33 g/dL (32-36); MEAN CORPUSCULAR VOLUME 90 fL (80-99); MEAN PLATELET VOLUME 11.8 fL (9.0-12.2); MONOCYTES # (AUTO) 0.7 10^3/uL (0.0-1.0); MONOCYTES % (AUTO) 5 % (0-12); NEUTROPHILS % (AUTO) 82 % (42-75); PLATELET COUNT 133 10^3/uL (130-400); WHITE BLOOD COUNT 14.6 10^3/uL (4.3-11.0)
[2021-10-07 08:27] LABS: CALCIUM 8.1 MG/DL (8.5-10.1); CREATININE SERUM 0.98 MG/DL (0.60-1.30); POTASSIUM 3.2 MMOL/L (3.6-5.0)
[2021-10-07] MEDS: ENOXAPARIN 40 MG/0.4 ML (LOVENOX) SYR SC SCH (08:47)
[2021-10-07] MEDS: FAMOTIDINE 20MG/2ML IV (PEPCID) IV SCH (08:47)
[2021-10-07] MEDS ORDERED: KCL 20 MEQ TAB (K-DUR) PO ONE ×2 (09:30→12:00)
[2021-10-07] MEDS ORDERED: MAGNESIUM 1 GM/100 ML IVPB 100 ML IV ONE (09:30)
[2021-10-07] MEDS ORDERED: meTOproloL SUCCINATE 50 MG (TOPROL XL) TAB PO SCH (09:30)
--- NOTE | 2021-10-07 09:30 | Progress Note - Cardiology ---
Cardiology SOAP Progress Note Subjective: Sitting up in bed Feels SOB is better today Continues to c/o CP, unchanged from yesterday No c/o palpitations Objective: I&O/Vital Signs 10/06/21 10/07/21 10/07/21 10/07/21 23:34 01:00 04:53 04:53 Temp 37.4 38.1 38.1 Pulse 70 80 80 Resp 20 18 B/P (MAP) 140/75 147/89 Pulse Ox 91 92 O2 Delivery Room Air Room Air 10/07/21 10/07/21 10/07/21 05:23 07:15 08:02 Temp 37.7 37.4 Pulse 86 78 Resp 18 B/P (MAP) 154/84 Pulse Ox 90 O2 Delivery Room Air 10/07/21 00:00 Intake Total 1940 ml Output Total 300 ml Balance 1640 ml Weight (Pounds): 215 Weight (Calculated Kilograms): 97.866693 Constitutional: AAO x 3, well-developed, well-nourished Respiratory: No accessory muscle use, No respiratory distress; chest expansion is symmetric, chest is bilaterally symmetric, rhonchi (scattered), other (coarse breath sounds) Cardiovascular: regular rate-rhythm; No JVD; S1 and S2 Gastrointestional: No tender; soft, round, audible bowel sounds Extremities: no lower extremity edema bilateral Neurologic/Psychiatric: grossly intact (moves all extremities) Skin: normal color, warm/dry, ecchymosis Results/Procedures: Labs Laboratory Tests 10/07/21 05:40: White Blood Count 14.6H, Red Blood Count 4.27L, Hemoglobin 12.7L, Hematocrit 39L , Mean Corpuscular Volume 90, Mean Corpuscular Hemoglobin 30, Mean Corpuscular Hemoglobin Concent 33, Red Cell Distribution Width 13.4, Platelet Count 133, Mean Platelet Volume 11.8, Immature Granulocyte % (Auto) 0, Neutrophils (%) (Auto) 82H, Lymphocytes (%) (Auto) 11L, Monocytes (%) (Auto) 5, Eosinophils (%) (Auto) 1, Basophils (%) (Auto) 0, Neutrophils # (Auto) 12.0H, Lymphocytes # (Auto) 1.5, Monocytes # (Auto) 0.7, Eosinophils # (Auto) 0.2, Basophils # (Auto) 0.1, Immature Granulocyte # (Auto) 0.1, Sodium Level 139, Potassium Level 3.2L, Chloride Level 110H, Carbon Dioxide Level 19L, Anion Gap 10, Blood Urea Nitrogen 17, Creatinine 0.98, Estimat Glomerular Filtration Rate 97, BUN/Creatinine Ratio 17, Glucose Level 88, Calcium Level 8.1L Microbiology 10/06/21 MRSA Screen - Final, Complete MRSA not isolated 10/05/21 Blood Culture - Preliminary, Resulted No growth Laboratory Tests 10/05/21 21:40 10/06/21 04:30 10/07/21 05:40 A/P: Assessment: Episode of unresponsiveness reversed with Narcan - unresponsiveness likely related to medication/drug abuse Pneumonia - management per medical services HTN - start BB Chest pain - no evidence of ACS - by description appears musculoskeletal likely d/t CPR Methamphetamine abuse - tested positive this admission - cessation advised Hep C (+) - H/O IV drug use Tobaccoism - cessation advised Plan: Echocardiogram to eval structure and function HTN - start BB Management of pneumonia is with medical Monitor lab replace electrolytes Clinical Quality Measures AMI/AHF: ASA po Prior to arrival: KAYLYN Helms Oct 07, 2021 09:30
--- NOTE | 2021-10-07 10:59 | Progress Note - Cardiology ---
Cardiology SOAP Progress Note Subjective: No cp or palp or syncope No shortness of breath at rest No n/v/d Some gen malaise and weakness Objective: I&O/Vital Signs 10/06/21 10/07/21 10/07/21 10/07/21 23:34 01:00 04:53 04:53 Temp 37.4 38.1 38.1 Pulse 70 80 80 Resp 20 18 B/P (MAP) 140/75 147/89 Pulse Ox 91 92 O2 Delivery Room Air Room Air 10/07/21 10/07/21 10/07/21 05:23 07:15 08:02 Temp 37.7 37.4 Pulse 86 78 Resp 18 B/P (MAP) 154/84 Pulse Ox 90 O2 Delivery Room Air 10/06/21 23:59 Intake Total 1940 ml Output Total 300 ml Balance 1640 ml Weight (Pounds): 215 Weight (Calculated Kilograms): [id number] Constitutional: AAO x 3, well-developed, well-nourished Respiratory: No accessory muscle use, No respiratory distress; chest expansion is symmetric, chest is bilaterally symmetric, rhonchi (scattered), other (coarse breath sounds) Cardiovascular: regular rate-rhythm; No JVD; S1 and S2 Gastrointestional: No tender; soft, round, audible bowel sounds Extremities: no lower extremity edema bilateral Neurologic/Psychiatric: grossly intact (moves all extremities) Skin: normal color, warm/dry, ecchymosis Results/Procedures: Labs Laboratory Tests 10/07/21 05:40: White Blood Count 14.6H, Red Blood Count 4.27L, Hemoglobin 12.7L, Hematocrit 39L , Mean Corpuscular Volume 90, Mean Corpuscular Hemoglobin 30, Mean Corpuscular Hemoglobin Concent 33, Red Cell Distribution Width 13.4, Platelet Count 133, Mean Platelet Volume 11.8, Immature Granulocyte % (Auto) 0, Neutrophils (%) (Auto) 82H, Lymphocytes (%) (Auto) 11L, Monocytes (%) (Auto) 5, Eosinophils (%) (Auto) 1, Basophils (%) (Auto) 0, Neutrophils # (Auto) 12.0H, Lymphocytes # (Auto) 1.5, Monocytes # (Auto) 0.7, Eosinophils # (Auto) 0.2, Basophils # (Auto) 0.1, Immature Granulocyte # (Auto) 0.1, Sodium Level 139, Potassium Level 3.2L, Chloride Level 110H, Carbon Dioxide Level 19L, Anion Gap 10, Blood Urea Nitrogen 17, Creatinine 0.98, Estimat Glomerular Filtration Rate 97, BUN/Creatinine Ratio 17, Glucose Level 88, Calcium Level 8.1L Microbiology 10/06/21 MRSA Screen - Final, Complete MRSA not isolated 10/05/21 Blood Culture - Preliminary, Resulted No growth Laboratory Tests 10/05/21 21:40 10/06/21 04:30 10/07/21 05:40 A/P: Assessment: Episode of unresponsiveness reversed with Narcan - unresponsiveness likely related to medication/drug abuse Pneumonia - management per medical services HTN - start BB Chest pain - no evidence of ACS - by description appears musculoskeletal likely d/t CPR Methamphetamine abuse - tested positive this admission - cessation advised Hep C (+) - H/O IV drug use Tobaccoism - cessation advised Plan: Echocardiogram to eval structure and function HTN - start BB Management of pneumonia is with the Hospitalist service Replace electrolytes, monitor labs Clinical Quality Measures AMI/AHF: ASA po Prior to arrival: GUTIERREZ Interiano MD FACP FAC CCDS Oct 07, 2021 10:59
--- NOTE | 2021-10-07 11:59 | Progress Note ---
ONUR BRODY III MED STUDENT 10/07/21 1159: Subjective Subjective/Events-last exam Pt had low febrile episode overnight 10/06 - 10/07 however denies any complaints. Notes that his chest is still sore where he received compressions. Minimal abdominal bloating feeling reported. Denies other active problems, no SOB, chills, diaphoresis, dysuira, constipation, nausea, vomiting. No longer requiring supplemental O2 Review of Systems General: No Chills, No Night Sweats, No Fatigue, No Malaise, No Appetite, No Other HEENT: No Head Aches, No Visual Changes, No Eye Pain, No Ear Pain, No Dysphasia, No Sinus Congestion, No Post Nasal Drip, No Sore Throat, No Other Pulmonary: No Dyspnea, No Cough, No Pleuritic Chest Pain, No Other Cardiovascular: Chest Pain (sternal chest pain related to compressions ); No: Palpitations, Orthopnea, Paroxysmal Noc. Dyspnea, Edema, Lt Headedness, Other Gastrointestinal: Other (describes a sensation of minimal abdominal bloating ); No: Nausea, Vomiting, Abdominal Pain, Diarrhea, Constipation, Melena, Hemato chezia Genitourinary: No Dysuria, No Frequency, No Incontinence, No Hematuria, No Retention, No Other Musculoskeletal: No: other, neck pain, shoulder pain, arm pain, back pain, hand pain, leg pain, foot pain Neurological: No: Weakness, Numbness, Incoordination, Change in speech, Confusion, Seizures, Other Focused Exam Lactate Level 10/05/21 22:15: Lactic Acid Level 1.13 Objective Exam Last Set of Vital Signs Vital Signs Date Time Temp Pulse Resp B/P (MAP) Pulse Ox O2 Delivery O2 Flow Rate FiO2 10/07/21 11:43 37.6 64 20 145/94 90 Room Air 10/06/21 10:00 2.00 10/06/21 01:49 98 Capillary Refill : Less Than 3 Seconds I&O Intake and Output 10/07/21 00:00 Intake Total 4940 ml Output Total 1300 ml Balance 3640 ml Intake Oral 1340 ml IV Total 3600 ml Output Urine Total 1300 ml # Voids 1 Daily Weight Change No General: Alert, Oriented X3, Cooperative, No Acute Distress HEENT: Atraumatic, PERRLA, EOMI, Mucous Memb Moist/[place] Neck: Supple, No JVD Lungs: Normal Air Movement, Other (minimal crackles heard in bilateral lung bases, much improved from admission. no wheezes or stridor appreciated. no accessory muscle use ) Heart: Regular Rate, Normal S1, Normal S2, No Murmurs Abdomen: Normal Bowel Sounds, Soft, No Tenderness Extremities: No Clubbing, No Cyanosis, No Edema, Normal Pulses, No Tenderness/Swelling Skin: No Significant Lesion Neuro: Normal Speech, Cranial Nerves 3-12 NL Psych/Mental Status: Mental Status NL Results/Procedures Lab Laboratory Tests 10/07/21 05:40: White Blood Count 14.6H, Red Blood Count 4.27L, Hemoglobin 12.7L, Hematocrit 39L , Mean Corpuscular Volume 90, Mean Corpuscular Hemoglobin 30, Mean Corpuscular Hemoglobin Concent 33, Red Cell Distribution Width 13.4, Platelet Count 133, Mean Platelet Volume 11.8, Immature Granulocyte % (Auto) 0, Neutrophils (%) (Auto) 82H, Lymphocytes (%) (Auto) 11L, Monocytes (%) (Auto) 5, Eosinophils (%) (Auto) 1, Basophils (%) (Auto) 0, Neutrophils # (Auto) 12.0H, Lymphocytes # (Auto) 1.5, Monocytes # (Auto) 0.7, Eosinophils # (Auto) 0.2, Basophils # (Auto) 0.1, Immature Granulocyte # (Auto) 0.1, Sodium Level 139, Potassium Level 3.2L, Chloride Level 110H, Carbon Dioxide Level 19L, Anion Gap 10, Blood Urea Nitrogen 17, Creatinine 0.98, Estimat Glomerular Filtration Rate 97, BUN/Creatinine Ratio 17, Glucose Level 88, Calcium Level 8.1L Microbiology 10/06/21 MRSA Screen - Final, Complete MRSA not isolated 10/05/21 Blood Culture - Preliminary, Resulted No growth Laboratory Tests 10/07/21 05:40 Radiology NAME: CHAIM POOLE TOMMIE REC#: [id number] PT STATUS: ADM IN : 1975 PHYSICIAN: NELSON BORGES MD ADMIT DATE: 10/06/21/ICU Draft Date of Exam:10/05/21 CT EDENILSON CHEST/NOANG ABD-PELV W INDICATION: Chest pain, abdominal pain, hypoxia CTA chest, abdomen and pelvis Thin axial sections through the chest, abdomen and pelvis are obtained following intravenous contrast bolus. Multiplanar MIP images were reconstructed and reviewed. All CT scans use one or more of the following dose optimizing techniques: automated exposure control, MA and/or KvP adjustment based on patient size and exam type or iterative reconstruction. No priors CHEST: No intraluminal pulmonary arterial filling defects are identified. The thoracic aorta appeared nonacute. There is no pleural or pericardial effusion. There is herniation of peritoneal fluid and perigastric fat through the hiatus. No significant herniation of stomach. The stomach itself was distended. Lung showed a 5 lobed bilateral lower greater than upper lobe distribution of centrilobular nodules with largely tree-in-bud morphology as well as some dependent zones of atelectatic consolidation. Findings suggest bronchiolitis including infectious etiologies of a mycobacterial, fungal or bacterial. No pneumothorax. No acute chest wall pathology. No soft tissue density lung mass. No adenopathy. ABDOMEN/PELVIS: Heterogeneously enhancing partially exophytic mass off the upper pole of the left kidney is directed anteromedially and measured 3.2 x 2.6 cm in the axial plane, the appearance is suspect for renal cell carcinoma. There are additional simple benign Bosniak 2 left renal cortical cysts as well as bilateral 2 to 3 mm nonobstructing stones within lower pole calyces. The adrenals are negative, the renal veins and cava are patent. No findings of extracapsular extension of suspected neoplasm. No pathological appearing abdominal pelvic mesenteric or retroperitoneal lymph nodes. There is no suspicious lytic or sclerotic bony lesion. Stomach is distended but appeared nonfocal. There is no small or large bowel obstruction. The liver unremarkable. No bile duct dilatation. Spleen and pancreas unremarkable. The aortoiliac and mesenteric vessels patent and nonaneurysmal. There is no small or large bowel obstruction. There is noninflamed mild sigmoid diverticulosis. No diverticulitis, the appendix air-containing visualized and normal. There are degenerative changes to the bony structures. IMPRESSION: CHEST: Bilateral pneumonia favored to be a infectious bronchiolitis, mild bibasilar atelectasis, no evidence for PE or acute aortic pathology. No thoracic adenopathy or suspect lung mass. Herniation of perigastric fat into the paraesophageal lower posterior mediastinum. ABDOMEN/PELVIS: 1. Findings suspicious for renal cell carcinoma left upper pole without features suggestive of regional or distant metastasis. 2. There are superimposed benign renal cyst and nonobstructing renal calculi. Mild noninflamed sigmoid diverticulosis. No bowel, biliary or urinary tract obstruction with a normal appendix. Case discussed with the emergency room physician at time of this dictation relaying the suspicion for a renal malignancy, otherwise in agreement with preliminary report Dictated on workstation # [id number] Dict: 10/06/21 0750 Trans: 10/06/21 0806 CVB [id number] Interpreted by: GIULLERMINA PRASAD Electronically signed by: NAME: CHAIM POOLE [facility] REC#: [id number] PT STATUS: REG ER : 1975 PHYSICIAN: NELSON BORGES MD ADMIT DATE: 10/05/21/ER Signed Date of Exam:10/05/21 CHEST 1 VIEW, AP/PA ONLY CHEST 1 VIEW, AP/PA ONLY Indication: Chest pain. Comparison: None available. Findings: Left basilar patchy consolidation. No pleural effusion or pneumothorax. Heart is mildly enlarged. Impression: 1. Left basilar patchy consolidations are most likely due to pneumonia. 2. Advise followup PA and lateral chest radiographs in 4 weeks after appropriate medical management to ensure resolution. Dictated by: Dictated on workstation # [id number] Dict: 10/05/212131 Trans: 10/05/212229 ACB [id number] Interpreted by: ZACHARIAH CHASE MD Electronically signed by: ZACHARIAH CHASE MD 10/05/212229 Assessment/Plan Assessment/Plan (1) Overdose Status: Resolved Assessment & Plan: States that he took 1/2 a blue pill he believed to be xanax or valium that he received from friend. Was responsive to narcan by EMS however only tested positive for amphetamines/methamphetamines on UDS. Currently in rehab program outpatient. No acute needs at this time Qualifiers: Qualified Codes: T50.904A - Poisoning by unspecified drugs, medicaments and biological substances, undetermined, initial encounter (2) Hypoxia Status: Resolved Assessment & Plan: Acute hypoxia 2/2 accidental overdose and subsequent chest compressions. 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 On 2L on exam this AM and satting >95%. O2 weaned off on 10/06 and pt continues to sat well on RA. Denies any SOB (3) Bronchiolitis Status: Acute Assessment & Plan: Admission CT chest showed bilateral pneumonia favored to be a infectious bronchiolitis, mild bibasilar atelectasis, no evidence for PE or acute aortic pathology. No thoracic adenopathy or suspect lung mass. Leukocytosis of 17.5 on admission, decreased to 16.4 on 10/06. Started on IV zosyn while in ED. Afebrile. Procal, CRP within normal limits. Will transition to oral antibiotics for 5 days on discharge (7 days total of abx coverage) (4) Chest pain Status: Acute Assessment & Plan: Pt describes sternal chest pain that he relates to compressions he received. EKG w/o ischemic changes. Troponin not elevated. BNP within normal levels. Low concern for cardiac etiology of pain. No acute recommendations from cardiology at this time. Qualifiers: Qualified Codes: R07.9 - Chest pain, unspecified (5) RUFUS (acute kidney injury) Status: Resolved Assessment & Plan: Admission BUN 27 and sCr 1.44. Normalized to 24 and 1.00 on 10/06. Initial elevation in values likely component of unresponsive episode. (6) Abnormal CT scan, kidney Status: Acute Assessment & Plan: On admission CT, findings suspicious for renal cell carcinoma left upper pole without features suggestive of regional or distant metastasis. Superimposed benign renal cyst and nonobstructing renal calculi. Mild noninflamed sigmoid diverticulosis. No bowel, biliary or urinary tract obstruction with a normal appendix. Left upper pole findings will likely need outpatient follow-up after d/c home, however pt w/o insurance. Will work w/ social work to help establish outpatient urology follow- up for concerning renal finding. Clinical Quality Measures AMI/AHF: ASA po Prior to arrival: No SYED CARDENAS MD 10/07/21 8923: Supervisory-Addendum Brief Verification & Attestation Participated in pt care: history, MDM, physical Personally performed: supervision of care Care discussed with: Medical Student Procedures: n/a I personally saw and examined patient today, see my d/c summary for my findings. ONUR BRODY III MED STUDENT Oct 07, 2021 11:59 SYED CARDENAS MD Oct 07, 2021 17:33
[2021-10-07] MEDS ORDERED: AMOX1TAB12 PO (12:09)
--- NOTE | 2021-10-07 12:12 | Discharge Summary ---
Discharge Summary Hospital Course Problems/Diagnosis: (1) Overdose Status: Resolved Resolution Date/Time: 10/07/21 @ 12:10 Assessment & Plan: States that he took 1/2 a blue pill he believed to be xanax or valium that he received from friend. Was responsive to narcan by EMS however only tested positive for amphetamines/methamphetamines on UDS. Currently in rehab program outpatient. No acute needs at this time Qualifiers: Qualified Codes: T50.904A - Poisoning by unspecified drugs, medicaments and biological substances, undetermined, initial encounter (2) Hypoxia Status: Resolved Resolution Date/Time: 10/07/21 @ 12:10 Assessment & Plan: Acute hypoxia /2 accidental overdose and subsequent chest compressions. 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 On 2L on exam this AM and satting >95%. O2 weaned off on 10/06 and pt continues to sat well on RA. Denies any SOB (3) Bronchiolitis Status: Acute Assessment & Plan: Admission CT chest showed bilateral pneumonia favored to be a infectious bronchiolitis, mild bibasilar atelectasis, no evidence for PE or acute aortic pathology. No thoracic adenopathy or suspect lung mass. Leukocytosis of 17.5 on admission, decreased to 16.4 on 10/06. Started on IV zosyn while in ED. Afebrile. Procal, CRP within normal limits. Will transition to oral antibiotics for 5 days on discharge (7 days total of abx coverage) (4) Chest pain Status: Acute Assessment & Plan: Pt describes sternal chest pain that he relates to compress ions he received. EKG w/o ischemic changes. Troponin not elevated. BNP within normal levels. Low concern for cardiac etiology of pain. No acute recommendations from cardiology at this time. Qualifiers: Qualified Codes: R07.9 - Chest pain, unspecified (5) RUFUS (acute kidney injury) Status: Resolved Resolution Date/Time: 10/07/21 @ 12:10 Assessment & Plan: Admission BUN 27 and sCr 1.44. Normalized to 24 and 1.00 on 10/06. Initial elevation in values likely component of unresponsive episode. (6) Hypertension Status: Chronic Assessment & Plan: Resumed home lisinopril. (7) Abnormal CT scan, kidney Status: Acute Assessment & Plan: On admission CT, findings suspicious for renal cell carcinoma left upper pole without features suggestive of regional or distant metastasis. Superimposed benign renal cyst and nonobstructing renal calculi. Mild noninflamed sigmoid diverticulosis. No bowel, biliary or urinary tract obstruction with a normal appendix. Left upper pole findings will likely need outpatient follow-up after d/c home, however pt w/o insurance. Will work w/ social work to help establish outpatient urology follow- up for concerning renal finding. Hospital Course Date of Admission: Oct 06, 2021 at 01:00 Admission Diagnosis : Family Physician/Provider: No,Local Physician Date of Discharge: 10/07/21 Discharge Diagnosis: See problem list Hospital Course: See problem list Labs and Pending Lab Test: Laboratory Tests 10/07/21 05:40: White Blood Count 14.6H, Red Blood Count 4.27L, Hemoglobin 12.7L, Hematocrit 39L , Mean Corpuscular Volume 90, Mean Corpuscular Hemoglobin 30, Mean Corpuscular Hemoglobin Concent 33, Red Cell Distribution Width 13.4, Platelet Count 133, Mean Platelet Volume 11.8, Immature Granulocyte % (Auto) 0, Neutrophils (%) (Auto) 82H, Lymphocytes (%) (Auto) 11L, Monocytes (%) (Auto) 5, Eosinophils (%) (Auto) 1, Basophils (%) (Auto) 0, Neutrophils # (Auto) 12.0H, Lymphocytes # (Auto) 1.5, Monocytes # (Auto) 0.7, Eosinophils # (Auto) 0.2, Basophils # (Auto) 0.1, Immature Granulocyte # (Auto) 0.1, Sodium Level 139, Potassium Level 3.2L, Chloride Level 110H, Carbon Dioxide Level 19L, Anion Gap 10, Blood Urea Nitrogen 17, Creatinine 0.98, Estimat Glomerular Filtration Rate 97, BUN/Creatinine Ratio 17, Glucose Level 88, Calcium Level 8.1L Microbiology 10/06/21 MRSA Screen - Final, Complete MRSA not isolated 10/05/21 Blood Culture - Preliminary, Resulted No growth Home Meds Active Amox Tr-K Clv 875-125 mg Tab (Amoxicillin/Potassium Clav) 1 Each Tablet 1 Each PO BID Reported Lisinopril 40 Mg Tablet 40 Mg PO DAILY LAST FILLED 07-26-2021 #30/30 DAY SUPPLY Assessment/Pt DC Instructions Follow up with primary doctor within a week of discharge. Discharge Diet: Regular Diet Activity as Tolerated: Yes Discharge Physical Examination Allergies: Coded Allergies: Sulfa (Sulfonamide Antibiotics) (Verified Allergy, Unknown, 10/06/21) General Appearance: No Apparent Distress Respiratory: Lungs Clear, Normal Breath Sounds Cardiovascular: Regular Rate, Rhythm, No Murmur Skin: Normal Color, Warm/Dry Neurologic/Psychiatric: Alert, Normal Mood/Affect Clinical Quality Measures AMI/AHF: ASA po Prior to arrival: SYED Prieto MD Oct 07, 2021 12:12
[2021-10-07] MEDS ORDERED: LISI40TA9 PO (12:13)
[2021-10-07] MEDS ORDERED: FAMOTIDINE 20 MG (PEPCID) TABLET PO SCH ×2 (21:00)
[2021-10-08] MEDS ORDERED: meTOproloL SUCCINATE 50 MG (TOPROL XL) TAB PO SCH (09:00)
== END 2021-10-07 13:35 | disposition home or self-care (01) | DRG 918 ==
LOC: EDUNIT# 20:46 → ER 20:47 → ICU 10-06 01:00 → EDLOC 10-06 01:00 → 4TH 10-06 14:22
PROVIDERS: ADMIT Family Medicine; ATTEND Family Medicine
DX: T40.601A Poisoning by unspecified narcotics, accidental (unintentional), initial encounter (principal); J21.9 Acute bronchiolitis, unspecified; N17.9 Acute kidney failure, unspecified; R09.02 Hypoxemia; F15.10 Other stimulant abuse, uncomplicated; B19.20 Unspecified viral hepatitis C without hepatic coma; F90.9 Attention-deficit hyperactivity disorder, unspecified type; F10.10 Alcohol abuse, uncomplicated; I10 Essential (primary) hypertension; F17.210 Nicotine dependence, cigarettes, uncomplicated
CPT/HCPCS: 36415; 71045; 71275; 74177; 80048; 80053; 80061; 80306; 80320; 81000; 82550; 82805; 83605; 83735; 83874; 83880; 84100; 84145; 84484; 85007; 85025; 85027; 85379; 85610; 85730; 86141; 87040; 87081; 87088; 87636; 93005; 93041; 93306; 94761

== ENCOUNTER → 2022-10-26 | Outpatient (CLI) | payer OTHER ==
[~2022-10-26] MED LIST changes: +AMOX1TAB12 PO; +LISI40TA9 PO
--- NOTE | 2022-10-26 14:41 | Diagnostic Imaging Report ---
EXAMINATION: Radiographs for evaluation of scoliosis, 4 images. COMPARISON: None. HISTORY: 47-year-old male, back pain. FINDINGS: There is no notable scoliosis. There are five lumbar-type vertebral bodies. There are mild endplate degenerative related changes at L2-L3. There is no vertebral body anomaly. The sacroiliac joints are unremarkable in appearance. IMPRESSION: 1. No notable scoliosis. 2. Mild disc degenerative changes at L2-L3. Dictated by: Dictated on workstation # [id number]
== END ==
LOC: RAD 09:51
PROVIDERS: ATTEND Family Medicine
DX: Z02.71 Encounter for disability determination (principal)
CPT/HCPCS: 72081